=== PATIENT | male | born 1960 | race Caucasian/White ===

== ENCOUNTER 2016-08-25 14:52 | Inpatient (IN) | payer OTHER ==
[2016-08-25] VITALS (8 sets, daily range): BP systolic 113–140; BP diastolic 56–73; PULSE 64–77; RESP 16–20; TEMP 97.4–97.9; O2SAT 93–97
[~2016-08-25] VITALS: Ht 182.9 cm; Wt 97.9 kg
[2016-08-25] MEDS ORDERED: SODIUM CHLORIDE 0.9% FLUSH 5 ML FLUSH IVF PRN (15:15)
[2016-08-25 15:48] LABS: AUTOMATED NEUTROPHIL # 4.4 TH/MM3 (1.8-7.7); BASOPHIL # 0.1 TH/MM3 (0-0.2); BASOPHIL % 1.1 % (0.0-2.0); EOSINOPHIL # 0.2 TH/MM3 (0-0.4); EOSINOPHIL % 2.7 % (0.0-4.0); HEMATOCRIT 39.5 % (39.0-51.0); HEMO FLAGS DIFF FINAL; LYMPH % 32.9 % (9.0-44.0); LYMPHOCYTE # 2.7 TH/MM3 (1.0-4.8); MEAN CORPUSCULAR HGB CONC 34.1 % (32.0-36.0); MONO % 8.6 % (0.0-8.0); NEUT % 54.7 % (16.0-70.0); PLATELET COUNT 295 TH/MM3 (150-450); RED BLOOD COUNT 4.64 MIL/MM3 (4.50-5.90); RED CELL DISTRIBUTION WIDTH 13.3 % (11.6-17.2); WHITE BLOOD COUNT 8.1 TH/MM3 (4.0-11.0)
[2016-08-25 15:56] LABS: APTT (PATIENT) 30.5 SEC (24.3-30.1); INTERNATIONAL NORMALIZED RATIO 0.9 RATIO; PROTHROMBIN TIME - PATIENT 10.1 SEC (9.8-11.6)
[2016-08-25 16:07] LABS: ANION GAP 8 MEQ/L (5-15); BICARBONATE 28.3 MEQ/L (21.0-32.0); BLOOD UREA NITROGEN 21 MG/DL (7-18); CHLORIDE 101 MEQ/L (98-107); GLOMERULAR FILTRATION RATE 80 ML/MIN (>89); MAGNESIUM 1.9 MG/DL (1.5-2.5); POTASSIUM 3.5 MEQ/L (3.5-5.1); SODIUM (NA) 137 MEQ/L (136-145)
--- NOTE | 2016-08-25 16:07 | RADRPT ---
EXAM DATE/TIME: 08/25/2016 15:32 [place] COMPARISON: No previous studies available for comparison. INDICATIONS : Chest pain. MEDICAL HISTORY : Diabetes mellitus type II. SURGICAL HISTORY : Stents placed in 2000 ENCOUNTER: Initial ACUITY: 2 months PAIN SCORE: 5/10 LOCATION: Bilateral chest FINDINGS: A single view of the chest demonstrates the lungs to be symmetrically aerated without evidence of mas s, infiltrate or effusion. The cardiomediastinal contours are unremarkable. Osseous structures are intact. CONCLUSION: 1. No acute cardiopulmonary disease. Esau Morataya MD on August 25, 2016 at 16:02 Board Certified Radiologist. This report was verified electronically.
[2016-08-25 16:10] LABS: CREATINE KINASE 183 U/L (39-308)
[2016-08-25] MEDS ORDERED: ISOS30TA3 PO (16:15)
[2016-08-25] MEDS ORDERED: ATOR40TA16 PO (16:15)
[2016-08-25] MEDS ORDERED: ASPI1TAB69 PO (16:15)
[2016-08-25] MEDS ORDERED: METF500T PO (16:15)
[2016-08-25] MEDS ORDERED: GLYB2.5T3 PO (16:15)
[2016-08-25] MEDS ORDERED: HYDR12.57 PO (16:16)
[2016-08-25] MEDS ORDERED: LISI-515 PO (16:16)
[2016-08-25] MEDS ORDERED: TAMS0.4C4 PO (16:16)
[2016-08-25 16:23] LABS: CKMB 2.8 NG/ML (0.5-3.6)
--- NOTE | 2016-08-25 16:54 | PD ---
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 Patient says that this has been going on for past couple months but progressively getting worse in terms of the frequency and intensity. Patient has history of a stent put in 2001. No history of nausea or vomiting. No history of shortness of breath. The plan is to do a heart catheterization tomorrow. Patient has taken 2 baby aspirins at home this morning. PFS Past Medical History Narrative Medical List of his past medical history as reviewed from the nursing note. Cardiac Catheterization: Yes (stents placed) High Cholesterol: Yes Diabetes: Yes Patient Takes Glucophage: Yes (08/25/2016) Genitourinary: Yes (prostate problems) Hypertension: Yes Social History Alcohol Use: Yes (occasional) Tobacco Use: No Substance Use: Yes (marijuana occasional) Allergies-Medications (Allergen,Severity, Reaction): Coded Allergies: No Known Allergies (Unverified , 08/25/16) Comments No known drug allergies. Reported Meds & Prescriptions Reported Meds & Active Scripts Active Reported Tamsulosin (Tamsulosin HCl) 0.4 Mg Cap 0.4 Mg PO HS Hydrochlorothiazide 12.5 Mg Cap 12.5 Mg PO DAILY Lisinopril 20 Mg Tab 20 Mg PO DAILY Isosorbide Mononitrate ER (Isosorbide Mononitrate) 30 Mg Adonis 30 Mg PO BID Metformin (Metformin HCl) 500 Mg Tab 500 Mg PO BIDPC With meals Glyburide 2.5 Mg Tab 2.5 Mg PO BID Take with meals at the same time each day Atorvastatin (Atorvastatin Calcium) 40 Mg Tab 40 Mg PO HS Aspirin 81 Mg Tabdr 81 Mg PO DAILY Narrative Medication List of his home medications reviewed from the nursing note. Review of Systems Except as stated in HPI: all other systems reviewed are Neg Physical Exam Narrative GENERAL: Awake, alert, anxious but no obvious distress SKIN: Warm and dry. HEAD: Atraumatic. Normocephalic. EYES: Pupils equal and round. No scleral icterus. No injection or drainage. ENT: No nasal bleeding or discharge. Mucous membranes pink and moist. NECK: Trachea midline. No JVD. CARDIOVASCULAR: Regular rate and rhythm. No murmur appreciated. RESPIRATORY: No accessory muscle use. Clear to auscultation. Breath sounds equal bilaterally. GASTROINTESTINAL: Abdomen soft, non-tender, nondistended. Hepatic and splenic margins not palpable. MUSCULOSKELETAL: No obvious deformities. No clubbing. No cyanosis. No edema. NEUROLOGICAL: Awake and alert. No obvious cranial nerve deficits. Motor grossly within normal limits. Normal speech. PSYCHIATRIC: Appropriate mood and affect; insight and judgment normal. Data Data Last Documented VS Vital Signs Date Time Temp Pulse Resp B/P Pulse Ox O2 Delivery O2 Flow Rate FiO2 08/25/16 15:13 18 97 08/25/16 15:12 129/59 140/73 08/25/16 15:12 Room Air 08/25/16 15:00 75 08/25/16 14:55 97.9 Orders Electrocardiogram (08/25/16 15:10) Basic Metabolic Panel (Bmp) (08/25/16 15:10) Ckmb (Isoenzyme) Profile (08/25/16 15:10) Complete Blood Count With Diff (08/25/16 15:10) Magnesium (Mg) (08/25/16 15:10) Prothrombin Time / Inr (Pt) (08/25/16 15:10) Act Partial Throm Time (Ptt) (08/25/16 15:10) Troponin I (08/25/16 15:10) Chest, Single Ap (08/25/16 15:10) Ecg Monitoring (08/25/16 15:10) Bilateral Bp Monitoring (08/25/16 15:10) Iv Access Insert/Monitor (08/25/16 15:10) Oximetry (08/25/16 15:10) Oxygen Administration (08/25/16 15:10) Sodium Chloride 0.9% Flush (Ns Flush) (08/25/16 15:15) CKMB (08/25/16 14:20) CKMB% (08/25/16 14:20) Admit Order (Ed Use Only) (08/25/16 17:07) Consult Cardiology (08/25/16 ) Labs Laboratory Tests Test 08/25/16 14:20 White Blood Count 8.1 TH/MM3 Red Blood Count 4.64 MIL/MM3 Hemoglobin 13.4 GM/DL Hematocrit 39.5 % Mean Corpuscular Volume 85.0 FL Mean Corpuscular Hemoglobin 29.0 PG Mean Corpuscular Hemoglobin 34.1 % Concent Red Cell Distribution Width 13.3 % Platelet Count 295 TH/MM3 Mean Platelet Volume 8.8 FL Neutrophils (%) (Auto) 54.7 % Lymphocytes (%) (Auto) 32.9 % Monocytes (%) (Auto) 8.6 % Eosinophils (%) (Auto) 2.7 % Basophils (%) (Auto) 1.1 % Neutrophils # (Auto) 4.4 TH/MM3 Lymphocytes # (Auto) 2.7 TH/MM3 Monocytes # (Auto) 0.7 TH/MM3 Eosinophils # (Auto) 0.2 TH/MM3 Basophils # (Auto) 0.1 TH/MM3 CBC Comment DIFF FINAL Differential Comment Prothrombin Time 10.1 SEC Prothromb Time International 0.9 RATIO Ratio Activated Partial 30.5 SEC Thromboplast Time Sodium Level 137 MEQ/L Potassium Level 3.5 MEQ/L Chloride Level 101 MEQ/L Carbon Dioxide Level 28.3 MEQ/L Anion Gap 8 MEQ/L Blood Urea Nitrogen 21 MG/DL Creatinine 0.96 MG/DL Estimat Glomerular Filtration 80 ML/MIN Rate Random Glucose 99 MG/DL Calcium Level 9.8 MG/DL Magnesium Level 1.9 MG/DL Total Creatine Kinase 183 U/L Creatine Kinase MB 2.8 NG/ML Troponin I LESS THAN 0.02 NG/ML MDM Medical Decision Making Medical Screen Exam Complete: Yes Emergency Medical Condition: Yes Medical Record Reviewed: Yes Interpretation(s) Twelve-lead EKG was reviewed by me. Normal sinus rhythm, left axis deviation, nonspecific ST-T wave changes. Heart rate of 65 bpm. Differential Diagnosis ACS, unstable angina, non-STEMI Narrative Course 5:02 PM blood test results of back and within normal limit. I spoke with the hospitalist will admit the patient. Patient is aware of the plan of the catheterization tomorrow. Procedures EKG Prior to Arrival: Yes Diagnosis Primary Impression: Unstable angina Admitting Information Admitting Physician Requests: Kaylynn Goins MD Aug 25, 2016 16:54
[2016-08-25] MEDS ORDERED: DEXTROSE 50% IN WATER 50 ML VIAL(D50) IV PUSH PRN (17:45)
[2016-08-25] MEDS ORDERED: NALOXONE HCL 0.4 MG/ML AMP IV PRN (17:45)
[2016-08-25] MEDS ORDERED: ACETAMINOPHEN 325 MG TAB PO PRN ×2 (17:45→18:15)
[2016-08-25] MEDS ORDERED: BISACODYL 10 MG SUPP PR PRN (17:45)
[2016-08-25] MEDS ORDERED: SODIUM CHLORIDE 0.9% FLUSH 5 ML FLUSH FLUSH PRN (17:45)
[2016-08-25] MEDS ORDERED: GLUCAGON 1 MG/ML VIAL OTHER PRN (17:45)
[2016-08-25] MEDS ORDERED: MAGNESIUM HYDROXIDE SUSP 30 ML CUP PO PRN (17:45)
[2016-08-25] MEDS ORDERED: NITROGLYCERIN 0.3 MG SL 100 TABS/BTL SL PRN (17:45)
[2016-08-25] MEDS ORDERED: ONDANSETRON HCL 4 MG/2 ML VIAL IVP PRN (17:45)
--- NOTE | 2016-08-25 18:13 | HHI.HP ---
[facility] Primary [facility] Physician Abdifatah Maurer M.D. 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 Patient reports that he has been having on and off chest pain started last June. 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 However, he noted that in the past few days the chest pain frequency is more and the pain has increased. He even felt that he has a stabbing knife on his back mid scapular area in between shoulders. He also noted that when he woke up this morning his left jaw was hurting with some numbness. As per patient report also, he took twice the amount of all his medications today, thinking it was Monday, making him take all a.m. meds twice. On exam, patient states that he has no chest pain right now. Denies any other pain and discomfort. Denies SOB/ dyspnea. Denies palpitations, headaches, dizziness. Denies fevers, chills, n/v/d. Denies dysuria, abdominal cramping, abdominal pain, hematuria. Review of Systems Other Negative except for what is noted on history of present illness. Past Family Social History Past Medical History HTN DM 2 HLD BPH Past Surgical History Cardiac Stents in 2001 Reported Medications Tamsulosin (Tamsulosin HCl) 0.4 Mg Cap 0.4 Mg PO HS Hydrochlorothiazide 12.5 Mg Cap 12.5 Mg PO DAILY Lisinopril 20 Mg Tab 20 Mg PO DAILY Isosorbide Mononitrate ER (Isosorbide Mononitrate) 30 Mg Adonis 30 Mg PO BID Metformin (Metformin HCl) 500 Mg Tab 500 Mg PO BIDPC With meals Glyburide 2.5 Mg Tab 2.5 Mg PO BID Take with meals at the same time each day Atorvastatin (Atorvastatin Calcium) 40 Mg Tab 40 Mg PO HS Aspirin 81 Mg Tabdr 81 Mg PO DAILY Allergies: Coded Allergies: No Known Allergies (Unverified , 08/25/16) Active Ordered Medications Current Medications Medications (Trade) Dose Ordered Sig/Sakina Route Start Time Stop Time Status Last Admin (NS Flush) 2 ml UNSCH PRN IVF 08/25/16 15:15 (NS Flush) 2 ml UNSCH PRN FLUSH 08/25/16 17:45 UNV (NS Flush) 2 ml BID FLUSH 08/25/16 21:00 UNV (Tylenol) 650 mg Q4H PRN PO 08/25/16 17:45 UNV (Zofran Inj) 4 mg Q6H PRN IVP 08/25/16 17:45 UNV (Dulcolax Supp) 10 mg DAILY PRN TX 08/25/16 17:45 UNV (Milk Of Magnesia Liq) 30 ml Q12H PRN PO 08/25/16 17:45 UNV (Narcan Inj) 0.4 mg UNSCH PRN IV 08/25/16 17:45 UNV (Nitrostat Sl) 0.3 mg Q5M PRN SL 08/25/16 17:45 UNV (D50w (Vial) Inj) 25 ml UNSCH PRN IV PUSH 08/25/16 17:45 UNV (Glucagon Inj) 1 mg UNSCH PRN OTHER 08/25/16 17:45 UNV Family History Father high blood pressure, heart disease, AICD placement Mother heart problem, heart attack Siblings also has heart problems, high blood pressure Social History Occasional alcohol use Former smoker, quit August 2000 Denies substance abuse - quit in 1984 Physical Exam Vital Signs Vital Signs Date Time Temp Pulse Resp B/P Pulse Ox O2 Delivery O2 Flow Rate FiO2 08/25/16 15:13 18 97 08/25/16 15:12 129/59 140/73 08/25/16 15:12 95 Room Air 08/25/16 15:00 113 08/25/16 14:55 97.9 71 16 129/59 95 Physical Exam GENERAL: This is a well-nourished, well-developed patient, in no apparent distress. SKIN: No rashes, ecchymoses or lesions. Cool and dry. HEAD: Atraumatic. Normocephalic. No temporal or scalp tenderness. EYES: Pupils equal round and reactive. Extraocular motions intact. No scleral icterus. No injection or drainage. ENT: Nose without bleeding. Throat without erythema. Uvula midline. Airway patent. NECK: Trachea midline. No JVD or lymphadenopathy. Supple, nontender, no meningeal signs. CARDIOVASCULAR: Regular rate and rhythm without murmurs, gallops, or rubs. RESPIRATORY: Clear to auscultation. Breath sounds equal bilaterally. No wheezes , rales, or rhonchi. GASTROINTESTINAL: Abdomen soft, non-tender, nondistended. No hepato-splenomegaly , or palpable masses. No guarding. MUSCULOSKELETAL: Extremities without clubbing, cyanosis, or edema. No joint tenderness, effusion, or edema noted. No calf tenderness. Negative Homans sign bilaterally. NEUROLOGICAL: Awake and alert. Cranial nerves II through XII intact. Motor and sensory grossly within normal limits. Five out of 5 muscle strength in all muscle groups. Normal speech. Laboratory Laboratory Tests Test 08/25/16 14:20 White Blood Count 8.1 Red Blood Count 4.64 Hemoglobin 13.4 Hematocrit 39.5 Mean Corpuscular Volume 85.0 Mean Corpuscular Hemoglobin 29.0 Mean Corpuscular Hemoglobin 34.1 Concent Red Cell Distribution Width 13.3 Platelet Count 295 Mean Platelet Volume 8.8 Neutrophils (%) (Auto) 54.7 Lymphocytes (%) (Auto) 32.9 Monocytes (%) (Auto) 8.6 Eosinophils (%) (Auto) 2.7 Basophils (%) (Auto) 1.1 Neutrophils # (Auto) 4.4 Lymphocytes # (Auto) 2.7 Monocytes # (Auto) 0.7 Eosinophils # (Auto) 0.2 Basophils # (Auto) 0.1 CBC Comment DIFF FINAL Differential Comment Prothrombin Time 10.1 Prothromb Time International 0.9 Ratio Activated Partial 30.5 Thromboplast Time Sodium Level 137 Potassium Level 3.5 Chloride Level 101 Carbon Dioxide Level 28.3 Anion Gap 8 Blood Urea Nitrogen 21 Creatinine 0.96 Estimat Glomerular Filtration 80 Rate Random Glucose 99 Calcium Level 9.8 Magnesium Level 1.9 Total Creatine Kinase 183 Creatine Kinase MB 2.8 Troponin I LESS THAN 0.02 Result Diagram: 08/25/16 1420 08/25/16 1420 Assessment and Plan Problem List: (1) Unstable angina ICD Code: I20.0 Status: Acute (2) BPH (benign prostatic hyperplasia) ICD Code: N40.0 Status: Chronic (3) HLD (hyperlipidemia) ICD Code: E78.5 Status: Chronic (4) DM type 2 (diabetes mellitus, type 2) ICD Code: E11.9 Status: Chronic (5) HTN (hypertension) ICD Code: I10 Status: Chronic Assessment and Plan Patient is a pleasant 56 year old white male with primary medical history of hypertension, DM 2, BPH, hyperlipidemia, previous cardiac stents placement 2001 who 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 Singh) with symptoms of typical chest pain on exertion. Chest pain, angina unstable - EKG interpreted by me sinus rhythm with nonspecific ST to T wave elevation. We'll repeat EKG tomorrow - Dr. Singh consulted. - Nothing by mouth after midnight, possible cardiac catheter tomorrow - Nitroglycerin sublingual when necessary - First troponin 0.02, will trend. Check ECHO. -Monitor labs in a.m. HTN - monitor BP trend - Patient took twice the amount of medication this a.m. - lisinopril 20mg, ASA 81 mg, hydrochlorothiazide 12.5 mg DM 2 - we'll hold off on metformin for now. - Monitor Accu-Cheks, started on insulin sliding scale -Monitor for hypoglycemia BPH - home medication Flomax. We'll start after cardiac catheter DVT prop SCDs Written by Kiara Everett, acting as scribe for Dr. De Oliveira on 08/25/16 at 17: 31. The documentation accurately reflects the work performed [id number] by me on at 17:31. Code Status Full code Discussed Condition With Patient, RN, computer systems administrator, ED attending Physician Certification 2 Midnight Certification Type: Admission for Inpatient Services Order for Inpatient Services The services are ordered in accordance with Medicare regulations or non- Medicare payer requirements, as applicable. In the case of services not specified as inpatient-only, they are appropriately provided as inpatient services in accordance with the 2-midnight benchmark. Estimated LOS (days): 2 days is the estimated time the patient will need to remain in the hospital, assuming treatment plan goals are met and no additional complications. Post-Hospital Plan: Not yet determined Problem Qualifiers (1) DM type 2 (diabetes mellitus, type 2): Kiara Smallwood Aug 25, 2016 18:13 Johnny De Oliveira MD Aug 25, 2016 18:22
[2016-08-25] MEDS ORDERED: TEMAZEPAM 15 MG CAP PO PRN (18:15)
[2016-08-25] MEDS ORDERED: HEPARIN-D5W INJ 250 ML IV SCH (18:30)
--- NOTE | 2016-08-25 20:18 | MB ---
cc: JEAN-CLAUDE RODRIGUES DO DATE OF CONSULTATION 08/25/16 REASON FOR CONSULTATION Unstable angina. HISTORY OF PRESENT ILLNESS Gene Diaz is a pleasant 56-year-old male who presents to [place] emergency room on August 25, 2016 with a complaint of typical chest pain on exertion. He was originally over seeing Dr. Singh in the office and has been noting chest pain for the past couple of months since June. The pain has gotten consistently worse to the point where he is using Imdur twice a day and still having episodes. He states that he does get chest pain as well as a sharp stab between his shoulder blades, both go away with Imdur. He has also been noticing over the past few days left jaw pain. Because of these, Dr. Singh asked that he come over to the emergency room due to unstable angina for consideration of cardiac catheterization. PAST MEDICAL HISTORY 1. Coronary artery disease. 2. Hyperlipidemia 3. Diabetes mellitus. 4. Hypertension. PAST SURGICAL HISTORY Previous cardiac catheterization with stent placement to his RCA (2001 at [facility]). ALLERGIES NO KNOWN DRUG ALLERGIES. MEDICATIONS 1. Aspirin 81 mg daily 2. Lipitor 40 mg every night 3. Glyburide 2.5 mg b.i.d. 4. Metformin 500 mg b.i.d. 5. Imdur 30 mg b.i.d. 6. Lisinopril 20 mg daily 7. Hydrochlorothiazide 12.5 mg daily 8. Flomax 0.4 mg every night. FAMILY HISTORY Mother had high blood pressure, heart disease and ICD placement. He denies premature coronary artery disease or sudden cardiac within the family. SOCIAL HISTORY He occasionally drinks alcohol. He was a former smoker but quit August 2000. Denies substance abuse, quitting in 1984. He works in [employer]. REVIEW OF SYSTEMS 14 systems were reviewed including osteopathic. Pertinent positives and negatives as above, otherwise, negative. PHYSICAL EXAMINATION VITAL SIGNS: Temperature 97.9, heart rate 64, blood pressure 129/59, respirations 18, pulse ox 97% on room air. GENERAL: The patient appears well in no acute distress, alert, awake and oriented x3. HEENT: Extraocular muscles intact. Mucous membranes moist. NECK: Supple. No JVD at 45 degrees. No carotid bruits heard bilaterally. Carotid upstroke is brisk in nature. HEART: Regular rate and rhythm. Positive first and second heart sounds with no murmurs, gallops or rubs. PMI is nondisplaced. LUNGS: Clear to auscultation bilaterally. No wheezes, rales or rhonchi. ABDOMEN: Soft, nontender, nondistended, no organomegaly noted. EXTREMITIES: No clubbing, cyanosis or edema. Femoral and distal pulses are intact bilaterally. NEUROLOGIC: No focal deficits. SKIN: Warm, dry and intact. OSTEOPATHIC: No kyphoscoliosis, lordosis or paraspinal tender points. LABORATORY FINDINGS Hemoglobin 13.4, hematocrit 39.5, platelets 295. Potassium 3.5, BUN 21, creatinine 0.96, troponin less than 0.02. CARDIOLOGY STUDIES Electrocardiogram (August 25, 2016 at 1407) normal sinus rhythm, left axis deviation, LVH. IMPRESSION 1. Unstable angina with increased use of nitro still having episodes of chest pain daily. 2. Coronary artery disease with previous stent placed to his RCA (2001 at [facility]) 3. Hypertension 4. Diabetes mellitus type 2. 5. Hyperlipidemia 6. Benign prostatic hypertrophy RECOMMENDATIONS 1. Gene Diaz presents with increasing episodes of chest pain, most likely from unstable angina. He will undergo coronary visualization in the morning. If overnight he has increasing chest pain, hemodynamic compromise or electrical instability, he may need to go to the lab earlier. 2. We will plan on doing the procedure from the right radial access site. 3. We will check a 2-D echo to look at his overall left ventricular function, cardiac structure and possible valvopathies. 4. Further recommendations will be made after coronary visualization. Thank you for allowing me to see Gene Diaz. If there are any questions, please do not hesitate to call. Jean-Claude Rodrigues DO ANJALIP/ /6:19 PM /8:05 PM
[2016-08-25 20:29] LABS: APTT (PATIENT) 30.4 SEC (24.3-30.1)
[2016-08-25] MEDS: INSULIN ASPART SUPPLEMENTAL SCALE SQ SCH (21:00)
[2016-08-25] MEDS ORDERED: SODIUM CHLORIDE 0.9% FLUSH 5 ML FLUSH FLUSH SCH (21:00)
[2016-08-25 21:26] LABS: HEMATOCRIT 39.6 % (39.0-51.0); MEAN CELL VOLUME 84.1 FL (80.0-100.0); MEAN CORPUSCULAR HEMOGLOBIN 28.6 PG (27.0-34.0); PLATELET COUNT 282 TH/MM3 (150-450); RED BLOOD COUNT 4.71 MIL/MM3 (4.50-5.90); REVIEW FLAG FINAL; WHITE BLOOD COUNT 7.8 TH/MM3 (4.0-11.0)
[2016-08-25] MEDS: ATORVASTATIN 40 MG TAB PO SCH (21:35)
[2016-08-25] MEDS: ISOSORBIDE MONONITRATE 30 MG TAB PO SCH (21:35)
[2016-08-26] VITALS (12 sets, daily range): BP systolic 124–133; BP diastolic 60–69; PULSE 60–86; RESP 18–22; TEMP 97.5–98.5; O2SAT 95–98
[2016-08-26] MEDS ORDERED: HEPARIN SODIUM - IV 10,000 UNITS/10 ML VIAL IV PRN ×2 (00:30)
[2016-08-26 02:15] LABS: APTT (PATIENT) 31.5 SEC (24.3-30.1)
[2016-08-26] MEDS: INSULIN ASPART SUPPLEMENTAL SCALE SQ SCH ×3 (06:48→21:00)
[2016-08-26 07:03] LABS: AUTOMATED NEUTROPHIL # 2.6 TH/MM3 (1.8-7.7); BASOPHIL # 0.1 TH/MM3 (0-0.2); EOSINOPHIL # 0.4 TH/MM3 (0-0.4); EOSINOPHIL % 6.2 % (0.0-4.0); HEMATOCRIT 38.1 % (39.0-51.0); HEMO FLAGS DIFF FINAL; LYMPH % 38.5 % (9.0-44.0); LYMPHOCYTE # 2.2 TH/MM3 (1.0-4.8); MEAN CELL VOLUME 84.4 FL (80.0-100.0); MEAN CORPUSCULAR HEMOGLOBIN 29.2 PG (27.0-34.0); MEAN CORPUSCULAR HGB CONC 34.6 % (32.0-36.0); MONO % 8.9 % (0.0-8.0); NEUT % 45.4 % (16.0-70.0); PLATELET COUNT 273 TH/MM3 (150-450); RED BLOOD COUNT 4.51 MIL/MM3 (4.50-5.90); RED CELL DISTRIBUTION WIDTH 13.2 % (11.6-17.2); WHITE BLOOD COUNT 5.8 TH/MM3 (4.0-11.0)
[2016-08-26 07:10] LABS: ALT (GPT) 24 U/L (12-78); ANION GAP 7 MEQ/L (5-15); AST (GOT) 15 U/L (15-37); BICARBONATE 28.6 MEQ/L (21.0-32.0); BLOOD UREA NITROGEN 18 MG/DL (7-18); CHLORIDE 102 MEQ/L (98-107); POTASSIUM 3.6 MEQ/L (3.5-5.1); SODIUM (NA) 138 MEQ/L (136-145)
[2016-08-26 07:15] LABS: ALKALINE PHOSPHATASE 94 U/L (45-117); GLOMERULAR FILTRATION RATE 67 ML/MIN (>89); TOTAL BILIRUBIN ADULT 0.4 MG/DL (0.2-1.0)
[2016-08-26] MEDS ORDERED: HEPARIN-NS/PF INJ 500 ML ONE (09:10)
[2016-08-26] MEDS ORDERED: MIDAZOLAM HCL 2 MG/2 ML VIAL ONE (09:11)
[2016-08-26] MEDS ORDERED: HEPARIN SODIUM - IV 10,000 UNITS/10 ML VIAL ONE (09:21)
[2016-08-26] MEDS ORDERED: VERAPAMIL HCL 5 MG/2 ML VIAL ONE (09:21)
[2016-08-26] MEDS ORDERED: NITROGLYCERIN INJ 5 ML ONE (09:22)
[2016-08-26] MEDS ORDERED: MISC INFORMATION XX ONE (10:15)
[2016-08-26] MEDS ORDERED: SODIUM CHLORIDE 0.9% FLUSH 5 ML FLUSH IVF PRN (10:15)
[2016-08-26] MEDS ORDERED: IOHEXOL 350 MG/ML 100 ML BTL (for Cath Lab) OTHER ONE (10:25)
--- NOTE | 2016-08-26 10:39 | HHI.PR ---
Subjective Remarks Follow-up unstable angina 08/26/16-patient seen and examined early this morning, still free of chest pain and denies any shortness of breath. Currently nothing by mouth and plan for left heart catheterization Objective Vitals Vital Signs Date Time Temp Pulse Resp B/P Pulse Ox O2 Delivery O2 Flow Rate FiO2 08/26/16 08:02 97.5 86 22 133/69 95 08/26/16 04:01 Room Air 08/26/16 04:00 97.6 64 20 124/62 98 08/26/16 01:05 61 08/25/16 23:53 97.4 64 20 121/59 96 08/25/16 23:45 66 18 113/56 94 08/25/16 20:09 77 20 115/58 97 Room Air 08/25/16 20:08 97 Room Air 08/25/16 20:03 66 20 115/58 93 Room Air 08/25/16 18:19 68 18 113/59 95 Room Air 08/25/16 15:13 18 97 08/25/16 15:12 129/59 140/73 08/25/16 15:12 95 Room Air 08/25/16 15:00 75 08/25/16 14:55 97.9 71 16 129/59 95 I/O 08/25/16 08/25/16 08/25/16 08/26/16 08/26/16 08/26/16 07:00 15:00 23:00 07:00 15:00 23:00 Intake Total 0 ml Balance 0 ml Intake Oral 0 ml # Voids 2 # Bowel Movements 0 Result Diagram: 08/26/16 0506 08/26/16 0506 Imaging Last Impressions Chest X-Ray 08/25/16 1510 Signed Impressions: Service Date/Time: August 15:32 - CONCLUSION: 1. No acute cardiopulmonary disease. Esau Morataya MD Objective Remarks GENERAL: NAD SKIN: Warm and dry. HEAD: Normocephalic. EYES: No scleral icterus. No injection or drainage. NECK: Supple, trachea midline. No JVD or lymphadenopathy. CARDIOVASCULAR: Regular rate and rhythm without murmurs, gallops, or rubs. RESPIRATORY: Breath sounds equal bilaterally. No accessory muscle use. GASTROINTESTINAL: Abdomen soft, non-tender, nondistended. MUSCULOSKELETAL: No cyanosis, or edema. BACK: Nontender without obvious deformity. No CVA tenderness. A/P Problem List: (1) Unstable angina ICD Code: I20.0 Status: Acute (2) BPH (benign prostatic hyperplasia) ICD Code: N40.0 Status: Chronic (3) HLD (hyperlipidemia) ICD Code: E78.5 Status: Chronic (4) DM type 2 (diabetes mellitus, type 2) ICD Code: E11.9 Status: Chronic (5) HTN (hypertension) ICD Code: I10 Status: Chronic Assessment and Plan 56-year-old male with Chest pain, angina unstable - EKG interpreted by me sinus rhythm with nonspecific ST to T wave elevation. We'll repeat EKG tomorrow - Cardiology consulted for plan for left heart catheterization today . - Nothing by mouth - Nitroglycerin sublingual when necessary - ACS ruled out per protocol with serial cardiac enzyme and EKGs 2D ECHO pending. HTN - on lisinopril 20mg, ASA 81 mg, hydrochlorothiazide 12.5 mg DM 2 - continue to hold off on metformin for now. - Monitor Accu-Cheks, started on insulin sliding scale BPH - restart home medication Flomax after cardiac catheter DVT prop SCDs Problem Qualifiers (1) DM type 2 (diabetes mellitus, type 2): Johnny De Oliveira MD Aug 26, 2016 10:39
--- NOTE | 2016-08-26 11:04 | MA ---
cc: JEAN-CLAUDE RODRIGUES,ISAURA Ramirez MD DATE 08/26/2016 PROCEDURE PERFORMED Left heart catheterization, coronary angiography. PREPROCEDURE DIAGNOSIS Unstable angina POSTPROCEDURE DIAGNOSIS Multivessel coronary artery disease. MEDICATIONS USED Versed 1 mg, Fentanyl 50 mcg, Verapamil 2.5 mg, Nitro 200 mcg, heparin 3800 units. CONTRAST 70 cc FLUOROSCOPY 4.9 minutes ESTIMATED BLOOD LOSS 10 cc PROCEDURAL SUMMARY Gene Diaz is a pleasant 56-year-old male who was originally seen by my partner, Dr. Singh, in the office and was noted to have increasing use of nitroglycerin with chest pain daily concerning for unstable angina. He was sent to the emergency room last night and in seeing him, agreed that he should undergo coronary visualization. The risks, benefits and alternatives were explained to him and he signed consent as such. He was brought to the lab and prepped in the usual sterile fashion. The right radial artery was accessed using a modified Seldinger technique and placement of a slender 5/6 Terumo sheath. The sheath was easily aspirated and flushed. A JR-4 was then advanced to the ascending aortic root over a J-wire. This was used to cross the aortic valve and LV pressures were measured with an LVEDP of 7. JR-4 was then pulled back across the aortic valve showing no gradient of aortic stenosis. The JR-4 was then used for selective angiography of the right coronary artery showing a few tandem lesions with the first in the mid section of 90% and the second in the distal RCA which appears to be subtotal in nature. There is competitive flow in a distal PDA and posterolateral branch. The JR-4 was then removed over a J-wire and exchanged for a JL-3.5. This was used for selective angiography of the left coronary system. The left main appears to have 10% stenosis in a short nature. The left main gives off an LAD and left circumflex artery. LAD has 20% stenosis diffusely throughout with no significant obstructive disease. The first diagonal artery appears to have 50% ostial stenosis and the second diagonal appears to have ostial stenosis of 90%. The left circumflex appears to have 60% stenosis distally. It gives off four major obtuse marginals with the second and third coming off a similar area with 90% ostial stenosis each. The left coronary system, specifically the LAD does supply [id number] collaterals to the distal PDA and posterolateral branch. The JL-3.5 was then removed over a J-wire. Radial sheath was removed after placing a radial band with 9 cc of air. The patient left the cardiovascular decided the patient left the catheterization lab cardiovascularly stable. IMPRESSION 1. Unstable angina 2. Multivessel coronary artery disease RECOMMENDATIONS 1. Gene Diaz appears to have multiple at vessel coronary artery disease and CT surgery should at least be considered as his ostial diagonal would be a provisional stent across his LAD as well as his two obtuse marginals would be off the same branch and would end up being a provisional stent across his circumflex and second obtuse marginal. 2. Will have CT surgery to see him today. 3. He should most likely be placed back on a heparin drip until anticipated surgery. 4. If turned down for surgery, consideration will be made for possible stenting of his RCA and then decisions of medical management versus intervention on his other lesions. Thank you for allowing me to see Gene Diaz. If there are any questions, please do not hesitate to call. Jean-Claude Rodrigues DO VGP/DJL /10:08 AM /10:48 AM
[2016-08-26] MEDS ORDERED: ceFAZolin 2 GM PREMIX 50 ML IV SCH (12:00)
[2016-08-26] MEDS ORDERED: CEFAZOLIN INJ 500 MG in SODIUM CHLORIDE 0.9% IRR BTL 500 ML IRRIGATION SCH (12:00)
[2016-08-26] MEDS ORDERED: INSULIN REGULAR (IV INFUSION) 100 UNITS in SODIUM CHLORIDE 0.9% INJ 100 ML IV SCH (12:00)
[2016-08-26] MEDS ORDERED: METOPROLOL TARTRATE 25 MG TAB PO SCH (12:00)
[2016-08-26] MEDS ORDERED: SODIUM CHLORIDE 0.9% FLUSH 5 ML FLUSH IV FLUSH PRN (12:00)
[2016-08-26] MEDS ORDERED: PAPAVERINE INJ 60 MG, NITROGLYCERIN INJ 100 MCG, DILTIAZEM INJ 100 MG in SODIUM CHLORID... IRRIGATION SCH (12:00)
[2016-08-26] MEDS ORDERED: CHLORHEXIDINE GLUCONATE 4% SOLN 120 ML BTL TOPICAL SCH (12:00)
[2016-08-26] MEDS ORDERED: PILL SPLITTER OTHER PRN (12:30)
--- NOTE | 2016-08-26 12:37 | MB ---
cc: RAOUL STANTON MD DATE OF CONSULTATION: 08/26/2016 DATE OF : 1960 HISTORY OF PRESENT ILLNESS A 56-year-old male patient of Dr. Abdifatah Maurer and Dr. Singh, who apparently has a history of coronary artery disease with prior stent to the RCA in 2001. He has been having chest pain off and on for about three months with or without exertion. His anginal pain is heaviness in his chest radiating to both arms. He also has periods of chronic back pain. He saw Dr. Singh in the office complaining of his chest discomfort and also been taking additional Imdur for the pain. He recommended the patient come to the emergency room due to the unstable angina and considered for heart catheterization which was done today by Dr. Leyva. The heart cath showed 10% left main, proximal LAD 20%, mid distal LAD 20%, diagonal had up to 80% ostial lesion, circumflex had 50%, OM 99% ostial lesion and the RCA had 99% lesion. An echo has been ordered to evaluate the EF. The patient is currently pain free. He is, however, still on a heparin drip and nitrates. His cardiac risk factors include age, diabetes mellitus, hypertension, prior coronary artery disease and family history. PAST MEDICAL HISTORY 1. Coronary artery disease. 2. Hyperlipidemia. 3. Diabetes mellitus. 4. Hypertension. 5. Benign prostatic hypertrophy. PAST SURGICAL HISTORY Stent to the RCA in 2001. ALLERGIES He has no known allergies. MEDICATIONS Home meds include: 1. Aspirin 81 mg daily. 2. Lipitor 40 mg p.o. daily. 3. Glyburide 2.5 mg p.o. b.i.d. 4. Metformin 500 mg b.i.d. 5. Imdur 30 mg p.o. b.i.d. 6. Lisinopril 20 mg p.o. daily. 7. HCTZ 12.5 mg daily. 8. Flomax 0.4 mg daily. FAMILY HISTORY Mother at age 73 from cancer and heart disease, also had hypertension. Father also with heart disease and cancer and also had an ICD. SOCIAL HISTORY The patient is , has one child. Smoked for 30 years two packs per day, quit in 2000. Occasional alcohol. No illicit drugs. REVIEW OF SYSTEMS GENERAL: No night sweats, fever, heat or cold intolerance. SKIN: No psoriasis, itching or hives. HEENT: No blurred vision or hearing loss. RESPIRATORY: Some shortness of breath when he has his anginal pain. CARDIOVASCULAR: As above in the HPI. GASTROINTESTINAL: No diarrhea or vomiting. GENITOURINARY: No burning, frequency, urgency. PAPER DELIVERER: No history of TIA, CVA, seizure disorder. ENDOCRINE: Positive for diabetes. PHYSICAL EXAMINATION VITAL SIGNS: Blood pressure 130/70, heart rate 64-80, respiratory rate 18, afebrile. O2 sat 95 on room air. GENERAL: The patient is awake, alert, in no acute distress. HEENT: Head is normocephalic, atraumatic. Pupils equal and reactive. Oral mucosa pink and moist. NECK: Supple. No JVD. HEART: Heart sounds S1, S2, regular rate and rhythm. No rubs, murmurs or gallops. LUNGS: Clear to auscultation. No wheezes, rales or rhonchi. ABDOMEN: Soft, nontender. No masses or organomegaly. EXTREMITIES: No cyanosis, clubbing or edema. LABORATORY DATA Hemoglobin 13, hematocrit 38, white cell count 5.8, platelet count 273. Sodium 138, potassium 3.6, BUN 18, creatinine 1.12. INR 0.9. IMPRESSION AND PLAN This is a 56-year-old male with a history of prior stent to the RCA with disease to the diagonal, the circumflex, the OM, and again the RCA with recent anginal pain. Cardiac films have been evaluated by Dr. Raoul Stanton. Procedures, alternatives and risks will be discussed with the patient, and plan for possible surgery on Monday. He is to continue on the heparin drip. Dictated by: YEIMY Leon Raoul RAYMUNDO/GLEN /11:45 AM /3:51 PM
[2016-08-26] MEDS: ISOSORBIDE MONONITRATE 30 MG TAB PO SCH ×2 (12:50→21:23)
--- NOTE | 2016-08-26 15:43 | RADRPT ---
EXAM DATE/TIME: 08/26/2016 14:14 [facility] COMPARISON: No previous studies available for comparison. INDICATIONS : Preop cardiac surgery. MEDICAL HISTORY : Hypercholesterolemia. Hypertension. Hernia, hiatal. Head trauma. Dyspnea. GERD. Prostate problems. Diabetes. Substance use. SURGICAL HISTORY : Coronary artery stent. Cardiac cath. ENCOUNTER: Initial ACUITY: 1 day PAIN SCORE: 0/10 LOCATION: Bilateral neck PEAK SYSTOLIC VELOCITIES (cm/sec): ICA/CCA RATIO: Right: 0.8 Left: 0.7 ICA: Right: 81 Left: 93 CCA: Right: 101 Left: 124 ECA: Right: 121 Left: 109 VERTEBRAL: Right: 68 antegrade Left: 77 antegrade Elevated flow velocities and ICA/CCA ratios have been found to correlate with increased degrees of vessel stenosis, calculated as percentage of diameter relative to a normal segment of distal ICA/CCA FINDINGS: RIGHT CAROTID: There is no evidence for a hemodynamically significant carotid stenosis. Minimal int imal hyperplasia is present with scattered calcific plaque. LEFT CAROTID: There is no evidence for a hemodynamically significant carotid stenosis. Minimal inti mal hyperplasia is present with scattered calcific plaque. VERTEBRAL ARTERIES: Flow is antegrade in both vertebral arteries. MISCELLANEOUS: There are no ancillary masses or adenopathy. CONCLUSION: Negative examination for a hemodynamically significant carotid stenosis. Aydin Ken MD FACR Board Certified Radiologist. This report was verified electronically.
--- NOTE | 2016-08-26 15:44 | RADRPT ---
EXAM DATE/TIME: 08/26/2016 14:26 [facility] COMPARISON: No previous studies available for comparison. INDICATIONS : Preop cardiac surgery. MEDICAL HISTORY : Hypercholesterolemia. Hypertension. Hernia, hiatal. Head trauma. Dyspnea. GERD. Prostate problems. Di abetes. Substance use. SURGICAL HISTORY : Coronary artery stent. Cardiac cath. ENCOUNTER: Initial ACUITY: 1 day PAIN SCORE: 0/10 LOCATION: Bilateral leg. TECHNIQUE: Venous ultrasound of the left and right leg was performed from the inguinal ligament to the proximal calf. Real-time, color Doppler and spectral tracing, compression and augmentation techniques were us ed. FINDINGS: RIGHT LEG: There is normal compressibility of the deep venous system from the inguinal region to the proximal ca lf. No echogenic clot is seen in the lumen of the common femoral, femoral, popliteal, and posterior tibial veins. There is a normal response of the venous system to proximal and distal augmentation an d respiration. LEFT LEG: There is normal compressibility of the deep venous system from the inguinal region to the proximal ca lf. No echogenic clot is seen in the lumen of the common femoral, femoral, popliteal, and posterior tibial veins. There is a normal response of the venous system to proximal and distal augmentation an d respiration. CONCLUSION: Negative for deep venous thrombosis.. Aydin Ken MD FACR on August 26, 2016 at 15:42 Board Certified Radiologist. This report was verified electronically.
--- NOTE | 2016-08-26 15:55 | RADRPT ---
EXAM DATE/TIME: 08/26/2016 14:36 [facility] COMPARISON: No previous studies available for comparison. INDICATIONS : Preop cardiac surgery. MEDICAL HISTORY : Hypercholesterolemia. Hypertension. Hernia, hiatal. Head trauma. Dyspnea. GERD. Prostate problems. Di abetes. Substance use. SURGICAL HISTORY : Coronary artery stent. Cardiac cath. ENCOUNTER: Initial ACUITY: 1 day PAIN SCORE: 0/10 LOCATION: Bilateral leg. GREATER SAPHENOUS VEIN THIGH: PROXIMAL: Right 9 mm Left 8 mm MID: Right 3 mm Left 3 mm DISTAL: Right 3 mm Left 3 mm CALF: PROXIMAL: Right 3 mm Left 2 mm MID: Right 2 mm Left 2 mm DISTAL: Right 2 mm Left 2 mm FINDINGS: The venous system of the lower extremities are patent by color Doppler imaging. Measurements of the leg veins (in mm) are listed above. CONCLUSION: 1. Venous mapping as above Esau Morataya MD on August 26, 2016 at 15:53 Board Certified Radiologist. This report was verified electronically.
[2016-08-26 18:03] LABS: APTT (PATIENT) 29.2 SEC (24.3-30.1); INTERNATIONAL NORMALIZED RATIO 0.9 RATIO
[2016-08-26] MEDS: HEPARIN-D5W INJ 250 ML IV SCH (18:24)
[2016-08-26] MEDS ORDERED: SODIUM CHLORIDE 0.9% FLUSH 5 ML FLUSH IVF SCH (21:00)
[2016-08-26] MEDS: SODIUM CHLORIDE 0.9% FLUSH 5 ML FLUSH IV FLUSH SCH (21:00)
[2016-08-26] MEDS: ATORVASTATIN 40 MG TAB PO SCH (21:23)
[2016-08-26] MEDS: METOPROLOL TARTRATE 25 MG TAB PO SCH (21:23)
--- NOTE | 2016-08-26 22:56 | EKG ---
Date Performed: 08/25/2016 Time Performed: 14:04:47 PTAGE: 56 years EKG: Sinus rhythm MARKED LEFT AXIS DEVIATION MODERATE VOLTAGE CRITERIA FOR LVH, CONSIDER NORMAL VARIANT ABNORMAL ECG I NTERPRETATION BASED ON A DEFAULT AGE OF 40 YEARS NO PREVIOUS TRACING DOCTOR: Geronimo Garcia Interpretating Date/Time 08/26/2016 22:49:32
[2016-08-27] VITALS (21 sets, daily range): BP systolic 112–156; BP diastolic 60–81; PULSE 54–82; RESP 18; TEMP 97.6–98.7; O2SAT 94–98
[2016-08-27 00:06] LABS: BLOOD, URINE NEG (NEG); COMMENT (UR) CULT NOT INDICATED; CULTURE IF INDICATED CULT NOT INDICATED; GLUCOSE,URINE NEG (NEG); KETONE, URINE NEG (NEG); MUCUS URINE FEW /lpf (OCC); NITRITE,URINE NEG (NEG); PH, URINE 6.5 (5.0-8.5); SQUAMOUS EPITHELIAL CELL URINE 2 /hpf (0-5); URINE COLOR YELLOW (YELLW/STRAW)
[2016-08-27 00:10] LABS: APTT (PATIENT) 28.5 SEC (24.3-30.1)
[2016-08-27 04:56] LABS: AUTOMATED NEUTROPHIL # 3.5 TH/MM3 (1.8-7.7); BASOPHIL % 0.3 % (0.0-2.0); EOSINOPHIL # 0.4 TH/MM3 (0-0.4); EOSINOPHIL % 5.6 % (0.0-4.0); HEMATOCRIT 38.3 % (39.0-51.0); HEMO FLAGS DIFF FINAL; LYMPHOCYTE # 2.3 TH/MM3 (1.0-4.8); MEAN CELL VOLUME 84.4 FL (80.0-100.0); MEAN CORPUSCULAR HEMOGLOBIN 29.3 PG (27.0-34.0); MEAN CORPUSCULAR HGB CONC 34.8 % (32.0-36.0); MONO % 8.3 % (0.0-8.0); NEUT % 51.8 % (16.0-70.0); PLATELET COUNT 256 TH/MM3 (150-450); RED BLOOD COUNT 4.53 MIL/MM3 (4.50-5.90); RED CELL DISTRIBUTION WIDTH 13.5 % (11.6-17.2); WHITE BLOOD COUNT 6.7 TH/MM3 (4.0-11.0)
[2016-08-27 05:10] LABS: APTT (PATIENT) 33.9 SEC (24.3-30.1)
[2016-08-27 05:25] LABS: BICARBONATE 29.5 MEQ/L (21.0-32.0); POTASSIUM 3.6 MEQ/L (3.5-5.1)
[2016-08-27] MEDS: INSULIN ASPART SUPPLEMENTAL SCALE SQ SCH ×4 (06:44→20:10)
[2016-08-27] MEDS: ISOSORBIDE MONONITRATE 30 MG TAB PO SCH ×2 (08:04→20:03)
[2016-08-27] MEDS: ASPIRIN EC 81 MG TABEC PO SCH (08:05)
[2016-08-27] MEDS: SODIUM CHLORIDE 0.9% FLUSH 5 ML FLUSH IV FLUSH SCH ×2 (08:05→20:03)
[2016-08-27] MEDS: METOPROLOL TARTRATE 25 MG TAB PO SCH ×2 (08:05→20:03)
--- NOTE | 2016-08-27 10:39 | HHI.PR ---
Subjective Remarks Follow-up unstable angina 08/26/16-patient seen and examined early this morning, still free of chest pain and denies any shortness of breath. Currently nothing by mouth and plan for left heart catheterization 08/27/16-patient seen and examined, he is status post left heart catheterization with finding of multivessel coronary artery disease. CTS has been consulted. Currently denies any chest pain or shortness of breath. Family by the bedside. Case discussed with Dr. Leyva, cardiology Objective Vitals Vital Signs Date Time Temp Pulse Resp B/P Pulse Ox O2 Delivery O2 Flow Rate FiO2 08/27/16 08:00 98.3 60 18 139/77 98 08/27/16 06:00 61 08/27/16 05:04 98.0 62 18 120/60 98 08/27/16 05:00 63 08/27/16 04:00 61 08/27/16 03:00 65 08/27/16 01:00 66 08/27/16 00:10 94 08/27/16 00:00 64 08/27/16 00:00 98.2 66 18 112/62 98 08/26/16 23:00 66 08/26/16 22:00 62 08/26/16 21:00 60 08/26/16 20:00 65 08/26/16 19:30 98.2 64 18 126/60 98 08/26/16 19:00 64 08/26/16 18:00 65 08/26/16 17:00 68 08/26/16 16:00 80 08/26/16 16:00 98.5 72 18 133/69 98 I/O 08/26/16 08/26/16 08/26/16 08/27/16 08/27/16 08/27/16 07:00 15:00 23:00 07:00 15:00 23:00 Intake Total 0 ml 240 ml Output Total 600 ml Balance 0 ml -360 ml Intake Oral 0 ml 240 ml Output Urine Total 600 ml # Voids 2 # Bowel Movements 0 Result Diagram: 08/27/16 0334 08/27/16333 Imaging Last Impressions Lower Extremity Ultrasound 08/26/16 0000 Signed Impressions: Service Date/Time: Friday, August 26, 2016 14:36 - CONCLUSION: 1. Venous mapping as above Esau Morataya MD Carotid Artery Ultrasound 08/26/16 0000 Signed Impressions: Service Date/Time: Friday, August 26, 2016 14:14 - CONCLUSION: Negative examination for a hemodynamically significant carotid stenosis. Aydin Ken MD Chest X-Ray 08/25/16 1510 Signed Impressions: Service Date/Time: August 15:32 - CONCLUSION: 1. No acute cardiopulmonary disease. Esau Morataya MD Objective Remarks GENERAL: NAD SKIN: Warm and dry. HEAD: Normocephalic. EYES: No scleral icterus. No injection or drainage. NECK: Supple, trachea midline. No JVD or lymphadenopathy. CARDIOVASCULAR: Regular rate and rhythm without murmurs, gallops, or rubs. RESPIRATORY: Breath sounds equal bilaterally. No accessory muscle use. GASTROINTESTINAL: Abdomen soft, non-tender, nondistended. MUSCULOSKELETAL: No cyanosis, or edema. BACK: Nontender without obvious deformity. No CVA tenderness. A/P Problem List: (1) Unstable angina ICD Code: I20.0 Status: Acute (2) BPH (benign prostatic hyperplasia) ICD Code: N40.0 Status: Chronic (3) HLD (hyperlipidemia) ICD Code: E78.5 Status: Chronic (4) DM type 2 (diabetes mellitus, type 2) ICD Code: E11.9 Status: Chronic (5) HTN (hypertension) ICD Code: I10 Status: Chronic Assessment and Plan 56-year-old male with Multivessel coronary artery disease: Status post left heart catheterization ; cardiothoracic surgery has been consulted and planned for CABG 08/29/16. Lower extremity Doppler negative. Carotid ultrasound bilateral unremarkable. Currently on heparin drip/Imdur, beta urvashi, statin, nitroglycerin when necessary Chest pain, angina unstable - EKG interpreted by la sinus rhythm with nonspecific ST to T wave elevation. Status post left heart catheterization with finding of multivessel coronary disease. Management as above Hyperlipidemia: On statin HTN - on lisinopril 20mg, ASA 81 mg, hydrochlorothiazide 12.5 mg DM 2 - continue to hold off on metformin for now. - Monitor Accu-Cheks, started on insulin sliding scale BPH - restart home medication Flomax after cardiac catheter DVT prop SCDs Problem Qualifiers (1) DM type 2 (diabetes mellitus, type 2): Johnny De Oliveira MD Aug 27, 2016 10:39
--- NOTE | 2016-08-27 11:25 | PD.CARD.PN ---
Subjective Subjective Remarks No chest pain, no shortness of breath Objective Medications Current Medications Medications (Trade) Dose Ordered Sig/Sakina Route Start Time Stop Time Status Last Admin (Zofran Inj) 4 mg Q6H PRN IVP 08/25/16 17:45 (Dulcolax Supp) 10 mg DAILY PRN MT 08/25/16 17:45 (Milk Of Magnesia Liq) 30 ml Q12H PRN PO 08/25/16 17:45 (Narcan Inj) 0.4 mg UNSCH PRN IV 08/25/16 17:45 (Nitrostat Sl) 0.3 mg Q5M PRN SL 08/25/16 17:45 (D50w (Vial) Inj) 25 ml UNSCH PRN IV PUSH 08/25/16 17:45 (Glucagon Inj) 1 mg UNSCH PRN OTHER 08/25/16 17:45 (Tylenol) 650 mg Q4H PRN PO 08/25/16 18:15 (Tums Chew) 1,000 mg TID PRN CHEW 08/25/16 18:15 (Restoril) 15 mg HS PRN PO 08/25/16 18:15 (Ecotrin Ec) 81 mg DAILY PO 08/26/16 09:00 08/27/16 08:05 (Lipitor) 40 mg HS PO 08/25/16 21:00 08/26/16 21:23 (Imdur) 30 mg BID PO 08/25/16 21:00 08/27/16 08:04 (NS Flush) 2 ml BID IV FLUSH 08/26/16 21:00 (NS Flush) 2 ml UNSCH PRN IV FLUSH 08/26/16 12:00 (Lopressor) 12.5 mg Q12HR PO 08/26/16 21:00 08/27/16 08:05 Miscellaneous 1 ea 1 ea UNSCH PRN OTHER 08/26/16 12:30 (Heparin-D5W Inj) 250 ml @ 0 mls/hr TITRATE IV 08/26/16 17:00 08/26/16 18:24 Vital Signs / I&O Vital Signs Date Time Temp Pulse Resp B/P Pulse Ox O2 Delivery O2 Flow Rate FiO2 08/27/16 08:00 98.3 60 18 139/77 98 08/27/16 06:00 61 08/27/16 05:04 98.0 62 18 120/60 98 08/27/16 05:00 63 08/27/16 04:00 61 08/27/16 03:00 65 08/27/16 01:00 66 08/27/16 00:10 94 08/27/16 00:00 64 08/27/16 00:00 98.2 66 18 112/62 98 08/26/16 23:00 66 08/26/16 22:00 62 08/26/16 21:00 60 08/26/16 20:00 65 08/26/16 19:30 98.2 64 18 126/60 98 08/26/16 19:00 64 08/26/16 18:00 65 08/26/16 17:00 68 08/26/16 16:00 80 08/26/16 16:00 98.5 72 18 133/69 98 I/O 08/26/16 08/26/16 08/26/16 08/27/16 08/27/16 08/27/16 07:00 15:00 23:00 07:00 15:00 23:00 Intake Total 0 ml 240 ml Output Total 600 ml Balance 0 ml -360 ml Intake Oral 0 ml 240 ml Output Urine Total 600 ml # Voids 2 # Bowel Movements 0 Physical Exam GENERAL: NAD, AAOx3 SKIN: Warm and dry. HEAD: Atraumatic. Normocephalic. EYES: Pupils equal and round. No scleral icterus. No injection or drainage. ENT: No nasal bleeding or discharge. Mucous membranes pink and moist. NECK: Trachea midline. No JVD. CARDIOVASCULAR: Regular rate and rhythm. RESPIRATORY: No accessory muscle use. Clear to auscultation. Breath sounds equal bilaterally. GASTROINTESTINAL: Abdomen soft, non-tender, nondistended. Hepatic and splenic margins not palpable. MUSCULOSKELETAL: Extremities without clubbing, cyanosis, or edema. No obvious deformities. Right radial no hematoma NEUROLOGICAL: Awake and alert. No obvious cranial nerve deficits. Motor grossly within normal limits. Five out of 5 muscle strength in the arms and legs. Normal speech. PSYCHIATRIC: Appropriate mood and affect; insight and judgment normal. Laboratory Laboratory Tests Test 08/26/16 08/26/16 08/26/16 08/26/16 16:15 17:05 20:00 23:13 Nasal Screen MRSA (PCR) NEGATIVE Prothrombin Time 10.0 SEC Prothromb Time International 0.9 RATIO Ratio Activated Partial 29.2 SEC 28.5 SEC Thromboplast Time Urine Color YELLOW Urine Turbidity CLEAR Urine pH 6.5 Urine Specific [place] 1.034 Urine Protein TRACE mg/dL Urine Glucose (UA) NEG mg/dL Urine Ketones NEG mg/dL Urine Occult Blood NEG Urine Nitrite NEG Urine Bilirubin NEG Urine Urobilinogen 2.0 MG/DL Urine Leukocyte Esterase NEG Urine WBC 1 /hpf Urine Squamous Epithelial 2 /hpf Cells Urine Mucus FEW /lpf Microscopic Urinalysis Comment CULT NOT INDICATED Test 08/27/16 03:34 White Blood Count 6.7 TH/MM3 Red Blood Count 4.53 MIL/MM3 Hemoglobin 13.3 GM/DL Hematocrit 38.3 % Mean Corpuscular Volume 84.4 FL Mean Corpuscular Hemoglobin 29.3 PG Mean Corpuscular Hemoglobin 34.8 % Concent Red Cell Distribution Width 13.5 % Platelet Count 256 TH/MM3 Mean Platelet Volume 9.4 FL Neutrophils (%) (Auto) 51.8 % Lymphocytes (%) (Auto) 34.0 % Monocytes (%) (Auto) 8.3 % Eosinophils (%) (Auto) 5.6 % Basophils (%) (Auto) 0.3 % Neutrophils # (Auto) 3.5 TH/MM3 Lymphocytes # (Auto) 2.3 TH/MM3 Monocytes # (Auto) 0.6 TH/MM3 Eosinophils # (Auto) 0.4 TH/MM3 Basophils # (Auto) 0.0 TH/MM3 CBC Comment DIFF FINAL Differential Comment Activated Partial 33.9 SEC Thromboplast Time Sodium Level 137 MEQ/L Potassium Level 3.6 MEQ/L Chloride Level 102 MEQ/L Carbon Dioxide Level 29.5 MEQ/L Anion Gap 6 MEQ/L Blood Urea Nitrogen 19 MG/DL Creatinine 0.89 MG/DL Estimat Glomerular Filtration 88 ML/MIN Rate Random Glucose 145 MG/DL Calcium Level 8.8 MG/DL Triglycerides Level 223 MG/DL Cholesterol Level 149 MG/DL LDL Cholesterol 67 MG/DL HDL Cholesterol 37.0 MG/DL Cholesterol/HDL Ratio 4.02 RATIO Assessment and Plan Problem List: (1) Unstable angina (2) Multi-vessel coronary artery stenosis (3) HLD (hyperlipidemia) (4) HTN (hypertension) (5) DM type 2 (diabetes mellitus, type 2) Assessment and Plan 1) MVCAD for planned CABG Monday 2) 2D echo pending 3) Continue heparin gtt for unstable angina Problem Qualifiers (1) DM type 2 (diabetes mellitus, type 2): Jean-Claude Leyva DO Aug 27, 2016 11:25
--- NOTE | 2016-08-27 12:41 | EC ---
Study Study Date:08/27/2016 STUDY CONCLUSIONS SUMMARY - Left ventricle: The cavity size was normal. Wall thickness was normal. Systolic function was normal. The estimated ejection fraction was in the range of 55% to 60%. Wall motion was normal; there were no regional wall motion abnormalities. - Aortic valve: Valve area: 2.27cm^2(VTI). Valve area: 2.22cm^2 (Vmax). - Mitral valve: Mildly calcified annulus. Valve area by continuity equation (using LVOT flow): 1.55cm^2. If LV function is below 40, please consider prescribing an ACEI or ARB or document rationale for non-use. PROCEDURE DATA STUDY STATUS: Elective. Procedure: Transthoracic echocardiography. Image quality was good. Scanning was performed from the parasternal, apical, and subcostal acoustic windows. Study completion: The patient tolerated the procedure well. Transthoracic echocardiography. M-mode, complete 2D, complete spectral Doppler, and color Doppler. Height: Height: 72in. Weight: Weight: 212.6lb. Body mass index: BMI: 28.9kg/m^2. Body surface area: BSA: 2.19m^2. Patient status: Inpatient. CARDIAC ANATOMY LEFT VENTRICLE: The cavity size was normal. Wall thickness was normal. Systolic function was normal. The estimated ejection fraction was in the range of 55% to 60%. Wall motion was normal; there were no regional wall motion abnormalities. AORTIC VALVE: Trileaflet; normal thickness leaflets. Doppler: Transvalvular velocity was within the normal range. There was no stenosis. No regurgitation. Valve area: 2.27cm^2(VTI). Indexed valve area: 1.04cm^2/m^2 (VTI). Valve area: 2.22cm^2 (Vmax). Indexed valve area: 1.01cm^2/m^2 (Vmax). Mean gradient: 4mm Hg (S). AORTA: Aortic root: The aortic root was normal in size. MITRAL VALVE: Mildly calcified annulus. Doppler: Transvalvular velocity was within the normal range. There was no evidence for stenosis. No regurgitation. Valve area by continuity equation (using LVOT flow): 1.55cm^2. Indexed valve area by continuity equation (using LVOT flow): 0.71cm^2/m^2. Mean gradient: 2mm Hg (D). Peak gradient: 5mm Hg (D). LEFT ATRIUM: severely enlarged The atrium was normal in size. RIGHT VENTRICLE: The cavity size was normal. Wall thickness was normal. PULMONIC VALVE: Doppler: Transvalvular velocity was within the normal range. There was no evidence for stenosis. No regurgitation. TRICUSPID VALVE: Structurally normal valve. Doppler: Transvalvular velocity was within the normal range. No regurgitation. PULMONARY ARTERY: The main pulmonary artery was normal-sized. Systolic pressure was within the normal range. RIGHT ATRIUM: The atrium was normal in size. PERICARDIUM: There was no pericardial effusion. SYSTEMIC VEINS: Inferior vena cava: The vessel was normal in size. Patient weight: 212.6lb _Ejection fraction:_ 65-75% _Fractional shortening:_ 32% up to 5Kg 5-11.5Kg 11.6-22.9Kg 23-45Kg 45-57Kg Aortic Root 7-13 <17 13-22 17-27 17-27 LA diam 6-13 <23 24-38 33-47 37-40 RVID 10-17 7-15 7-15 7-18 8-17 LVIDd 12-22 <32 24-38 33-47 37-40 LVPW 2-4 3-6 5-7 6-8 7-8 IVS 2-4 3-6 5-7 6-8 7-8 BASIC MEASUREMENTS ADULT NORMAL Left ventricle LV internal dimension, ED, chordal *53.6 mm 43-52 level, PLAX LV internal dimension, ES, chordal *38.9 mm 23-38 level, PLAX Fractional shortening, chordal level, *27 % >29 PLAX LV posterior wall thickness, ED 10.3 mm IVS/LVPW ratio, ED 1 <1.3 Ventricular septum Septal thickness, ED 10.3 mm Aortic valve Leaflet separation 19 mm 15-26 Aorta Root diameter, ED 34 mm Left atrium Anterior-posterior dimension 50 mm Anterior-posterior dimension index *2.28 cm/m^2 <2.2 BASIC MEASUREMENTS ADULT NORMAL Aortic valve Leaflet separation 19 mm 15-26 DOPPLER MEASUREMENTS ADULT NORMAL Main pulmonary artery Pressure, S 23 mm Hg =30 Aortic valve Peak velocity, S 136 cm/s Mean velocity, S 91.4 cm/s VTI, S 41.1 cm Mean gradient, S 4 mm Hg Valve area, VTI 2.27 cm^2 Valve area index, VTI 1.04 cm^2/m^2 Valve area, Vmax 2.22 cm^2 Valve area index, Vmax 1.01 cm^2/m^2 Mitral valve Peak E-wave velocity 104 cm/s Peak A-wave velocity 78 cm/s Mean velocity, D 72.7 cm/s Deceleration time *243 ms 150-230 Mean gradient, D 2 mm Hg Peak gradient, D 5 mm Hg Peak E/A ratio 1.3 Valve area, LVOT continuity 1.55 cm^2 Valve area index, LVOT continuity 0.71 cm^2/m^2 Tricuspid valve Regurgitant peak velocity 208 cm/s Peak RV-RA gradient, S 17 mm Hg Maximal regurgitant velocity 208 cm/s Systemic veins Estimated CVP 5 mm Hg Right ventricle RV pressure, S 27 mm Hg <30 Pulmonic valve Peak velocity, S 103 cm/s LEGEND: Mean values are shown as u=mean value. Asterisk (*) mckinnon values outside specified normal range. Prepared and signed by Earle Boykin [id number]
[2016-08-27] MEDS: HEPARIN-D5W INJ 250 ML IV SCH (13:17)
[2016-08-27 14:21] LABS: APTT (PATIENT) 34.4 SEC (24.3-30.1)
[2016-08-27] MEDS: ATORVASTATIN 40 MG TAB PO SCH (20:03)
[2016-08-27 20:10] LABS: APTT (PATIENT) 35.7 SEC (24.3-30.1)
[2016-08-28] VITALS (15 sets, daily range): BP systolic 115–149; BP diastolic 69–79; PULSE 52–69; RESP 18–20; TEMP 97.9–98.5; O2SAT 96–100
[2016-08-28 05:03] LABS: HEMATOCRIT 40.5 % (39.0-51.0); MEAN CELL VOLUME 84.4 FL (80.0-100.0); MEAN CORPUSCULAR HGB CONC 34.4 % (32.0-36.0); PLATELET COUNT 261 TH/MM3 (150-450); RED CELL DISTRIBUTION WIDTH 13.2 % (11.6-17.2); REVIEW FLAG FINAL; WHITE BLOOD COUNT 6.6 TH/MM3 (4.0-11.0)
[2016-08-28] MEDS: HEPARIN-D5W INJ 250 ML IV SCH ×2 (07:00→22:05)
[2016-08-28] MEDS: INSULIN ASPART SUPPLEMENTAL SCALE SQ SCH ×4 (07:01→21:00)
--- NOTE | 2016-08-28 08:29 | HHI.PR ---
Subjective Remarks Follow-up unstable angina/multivessel coronary artery disease 08/26/16-patient seen and examined early this morning, still free of chest pain and denies any shortness of breath. Currently nothing by mouth and plan for left heart catheterization 08/27/16-patient seen and examined, he is status post left heart catheterization with finding of multivessel coronary artery disease. CTS has been consulted. Currently denies any chest pain or shortness of breath. Family by the bedside. Case discussed with Dr. Leyva, cardiology 08/28/16-patient seen and examined, complains of one episode of chest pain around 3 AM however now resolved. No other issues overnight Objective Vitals Vital Signs Date Time Temp Pulse Resp B/P Pulse Ox O2 Delivery O2 Flow Rate FiO2 08/28/16 07:00 58 08/28/16 04:00 54 08/28/16 04:00 Room Air 08/28/16 04:00 98.1 54 20 132/79 96 08/28/16 00:00 98.2 52 18 121/74 100 08/28/16 00:00 Room Air 08/28/16 00:00 61 08/27/16 23:00 54 08/27/16 22:00 66 08/27/16 21:00 60 08/27/16 20:00 98.7 66 18 137/75 98 08/27/16 20:00 Room Air 08/27/16 20:00 66 08/27/16 19:00 64 08/27/16 17:00 65 08/27/16 16:00 67 08/27/16 16:00 98.0 65 18 156/81 97 08/27/16 15:00 67 08/27/16 14:00 65 08/27/16 13:00 64 08/27/16 12:00 63 08/27/16 12:00 97.6 66 18 141/71 95 08/27/16 11:00 64 I/O 08/27/16 08/27/16 08/27/16 08/28/16 08/28/16 08/28/16 07:00 15:00 23:00 07:00 15:00 23:00 Intake Total 930 ml 792 ml Output Total 1000 ml Balance 930 ml -208 ml Intake Oral 930 ml 340 ml IV Total 452 ml Output Urine Total 1000 ml # Voids 5 # Bowel Movements 2 0 Result Diagram: 08/28/16 0435 08/27/16 0334 Imaging Last Impressions Lower Extremity Ultrasound 08/26/16 0000 Signed Impressions: Service Date/Time: Friday, August 26, 2016 14:36 - CONCLUSION: 1. Venous mapping as above Esau Morataya MD Carotid Artery Ultrasound 08/26/16 0000 Signed Impressions: Service Date/Time: Friday, August 26, 2016 14:14 - CONCLUSION: Negative examination for a hemodynamically significant carotid stenosis. Aydin Ken MD Chest X-Ray 08/25/16 1510 Signed Impressions: Service Date/Time: August 15:32 - CONCLUSION: 1. No acute cardiopulmonary disease. Esau Morataya MD Objective Remarks GENERAL: NAD SKIN: Warm and dry. HEAD: Normocephalic. EYES: No scleral icterus. No injection or drainage. NECK: Supple, trachea midline. No JVD or lymphadenopathy. CARDIOVASCULAR: Regular rate and rhythm without murmurs, gallops, or rubs. RESPIRATORY: Breath sounds equal bilaterally. No accessory muscle use. GASTROINTESTINAL: Abdomen soft, non-tender, nondistended. MUSCULOSKELETAL: No cyanosis, or edema. BACK: Nontender without obvious deformity. No CVA tenderness. A/P Problem List: (1) Unstable angina ICD Code: I20.0 Status: Acute (2) BPH (benign prostatic hyperplasia) ICD Code: N40.0 Status: Chronic (3) HLD (hyperlipidemia) ICD Code: E78.5 Status: Chronic (4) DM type 2 (diabetes mellitus, type 2) ICD Code: E11.9 Status: Chronic (5) HTN (hypertension) ICD Code: I10 Status: Chronic Assessment and Plan 56-year-old male with Multivessel coronary artery disease: Status post left heart catheterization ; cardiothoracic surgery has been consulted and plan for CABG tomorrow . Lower extremity Doppler negative. Carotid ultrasound bilateral unremarkable. Currently on heparin drip/Imdur, beta urvashi, statin, nitroglycerin when necessary Chest pain, angina unstable - EKG interpreted by me sinus rhythm with nonspecific ST to T wave elevation. Status post left heart catheterization with finding of multivessel coronary disease. Management as above Hyperlipidemia: On statin HTN - on lisinopril 20mg, ASA 81 mg, hydrochlorothiazide 12.5 mg DM 2 - continue to hold off on metformin . - Monitor Accu-Cheks, started on insulin sliding scale BPH - restart home medication Flomax DVT prop SCDs Problem Qualifiers (1) DM type 2 (diabetes mellitus, type 2): Johnny De Oliveira MD Aug 28, 2016 08:29
[2016-08-28 09:58] LABS: HEMOGLOBIN A1b 1.8 %; HEMOGLOBIN Ao 83.7 %; HEMOGLOBIN LA1C 2.4 %; HEMOGLOBIN P3 4.2 %
[2016-08-28] MEDS: ASPIRIN EC 81 MG TABEC PO SCH (10:27)
[2016-08-28] MEDS: ISOSORBIDE MONONITRATE 30 MG TAB PO SCH ×2 (10:27→22:07)
[2016-08-28] MEDS: METOPROLOL TARTRATE 25 MG TAB PO SCH ×2 (10:27→22:07)
[2016-08-28] MEDS: SODIUM CHLORIDE 0.9% FLUSH 5 ML FLUSH IV FLUSH SCH ×2 (10:27→21:00)
--- NOTE | 2016-08-28 12:05 | PD.CARD.PN ---
Subjective Subjective Remarks Mild chest pain over night, felt more anxious than anything, no shortness of breath Objective Medications Current Medications Medications (Trade) Dose Ordered Sig/Sakina Route Start Time Stop Time Status Last Admin (Zofran Inj) 4 mg Q6H PRN IVP 08/25/16 17:45 (Dulcolax Supp) 10 mg DAILY PRN ND 08/25/16 17:45 (Milk Of Magnesia Liq) 30 ml Q12H PRN PO 08/25/16 17:45 (Narcan Inj) 0.4 mg UNSCH PRN IV 08/25/16 17:45 (Nitrostat Sl) 0.3 mg Q5M PRN SL 08/25/16 17:45 (D50w (Vial) Inj) 25 ml UNSCH PRN IV PUSH 08/25/16 17:45 (Glucagon Inj) 1 mg UNSCH PRN OTHER 08/25/16 17:45 (Tylenol) 650 mg Q4H PRN PO 08/25/16 18:15 (Tums Chew) 1,000 mg TID PRN CHEW 08/25/16 18:15 (Restoril) 15 mg HS PRN PO 08/25/16 18:15 (Ecotrin Ec) 81 mg DAILY PO 08/26/16 09:00 08/28/16 10:27 (Lipitor) 40 mg HS PO 08/25/16 21:00 08/27/16 20:03 (Imdur) 30 mg BID PO 08/25/16 21:00 08/28/16 10:27 (NS Flush) 2 ml BID IV FLUSH 08/26/16 21:00 08/28/16 10:27 (NS Flush) 2 ml UNSCH PRN IV FLUSH 08/26/16 12:00 (Lopressor) 12.5 mg Q12HR PO 08/26/16 21:00 08/28/16 10:27 Miscellaneous 1 ea 1 ea UNSCH PRN OTHER 08/26/16 12:30 (Heparin-D5W Inj) 250 ml @ 0 mls/hr TITRATE IV 08/26/16 17:00 08/28/16 07:00 (Flomax) 0.4 mg HS PO 08/28/16 21:00 Vital Signs / I&O Vital Signs Date Time Temp Pulse Resp B/P Pulse Ox O2 Delivery O2 Flow Rate FiO2 08/28/16 07:00 58 08/28/16 04:00 54 08/28/16 04:00 Room Air 08/28/16 04:00 98.1 54 20 132/79 96 08/28/16 00:00 98.2 52 18 121/74 100 08/28/16 00:00 Room Air 08/28/16 00:00 61 08/27/16 23:00 54 08/27/16 22:00 66 08/27/16 21:00 60 08/27/16 20:00 98.7 66 18 137/75 98 08/27/16 20:00 Room Air 08/27/16 20:00 66 08/27/16 19:00 64 08/27/16 17:00 65 08/27/16 16:00 67 08/27/16 16:00 98.0 65 18 156/81 97 08/27/16 15:00 67 08/27/16 14:00 65 08/27/16 13:00 64 I/O 08/27/16 08/27/16 08/27/16 08/28/16 08/28/16 08/28/16 07:00 15:00 23:00 07:00 15:00 23:00 Intake Total 930 ml 792 ml Output Total 1000 ml Balance 930 ml -208 ml Intake Oral 930 ml 340 ml IV Total 452 ml Output Urine Total 1000 ml # Voids 5 # Bowel Movements 2 0 Physical Exam GENERAL: NAD, AAOx3 SKIN: Warm and dry. HEAD: Atraumatic. Normocephalic. EYES: Pupils equal and round. No scleral icterus. No injection or drainage. ENT: No nasal bleeding or discharge. Mucous membranes pink and moist. NECK: Trachea midline. No JVD. CARDIOVASCULAR: Regular rate and rhythm. RESPIRATORY: No accessory muscle use. Clear to auscultation. Breath sounds equal bilaterally. GASTROINTESTINAL: Abdomen soft, non-tender, nondistended. Hepatic and splenic margins not palpable. MUSCULOSKELETAL: Extremities without clubbing, cyanosis, or edema. No obvious deformities. Right radial no hematoma NEUROLOGICAL: Awake and alert. No obvious cranial nerve deficits. Motor grossly within normal limits. Five out of 5 muscle strength in the arms and legs. Normal speech. PSYCHIATRIC: Appropriate mood and affect; insight and judgment normal. Laboratory Laboratory Tests Test 08/27/16 08/27/16 08/28/16 08/28/16 13:45 19:15 04:35 06:10 Activated Partial 34.4 SEC 35.7 SEC 29.0 SEC Thromboplast Time White Blood Count 6.6 TH/MM3 Red Blood Count 4.80 MIL/MM3 Hemoglobin 13.9 GM/DL Hematocrit 40.5 % Mean Corpuscular Volume 84.4 FL Mean Corpuscular Hemoglobin 29.0 PG Mean Corpuscular Hemoglobin 34.4 % Concent Red Cell Distribution Width 13.2 % Platelet Count 261 TH/MM3 Mean Platelet Volume 8.8 FL Hemoglobin A1c 6.4 % Blood Type O POSITIVE O POSITIVE Antibody Screen NEGATIVE Crossmatch Leukocyte-Reduced Red Blood Cells Blood Bank Comment Assessment and Plan Problem List: (1) Unstable angina (2) Multi-vessel coronary artery stenosis (3) HLD (hyperlipidemia) (4) HTN (hypertension) (5) DM type 2 (diabetes mellitus, type 2) Assessment and Plan 1) MVCAD for planned CABG Monday 2) EF 55-60% 3) Continue heparin gtt for unstable angina 4) If chest pain, can give nitro SL Problem Qualifiers (1) DM type 2 (diabetes mellitus, type 2): Jean-Claude Leyva DO Aug 28, 2016 12:05
[2016-08-28 15:47] LABS: APTT (PATIENT) 41.4 SEC (24.3-30.1)
[2016-08-28 19:49] LABS: APTT (PATIENT) 43.4 SEC (24.3-30.1)
[2016-08-28] MEDS: ATORVASTATIN 40 MG TAB PO SCH (22:07)
[2016-08-28] MEDS: TAMSULOSIN HCL 0.4 MG CAP PO SCH (22:12)
[2016-08-28] MEDS ORDERED: NEXI20CA PO (22:24)
[2016-08-28] MEDS ORDERED: PANTOPRAZOLE SOD 20 MG DELAYED RELEASE TAB PO SCH (22:45)
[2016-08-28] MEDS: SODIUM CHLORID 0.9% 500 ML IV SCH (23:15)
[2016-08-28] MEDS ORDERED: INSULIN HUMAN REGULAR 1,000 UNITS/10 ML VIAL SQ PRN (23:15)
[2016-08-28] MEDS: LACTATED RINGER'S 1000 ML IV SCH (23:15)
[2016-08-28] MEDS ORDERED: METOPROLOL TARTRATE 25 MG TAB PO PRN (23:15)
[2016-08-29] VITALS (12 sets, daily range): BP systolic 110–146; BP diastolic 58–80; PULSE 59–69; RESP 18–20; TEMP 97–98.8; O2SAT 97–99
[2016-08-29] MEDS ORDERED: NITROGLYCERIN-DEXTROSE INJ 250 ML IV ONE (05:00)
[2016-08-29] MEDS ORDERED: AMINOCAPROIC ACID INJ 250 MG/ML 20 ML VIAL IV ONE (05:00)
[2016-08-29] MEDS ORDERED: CALCIUM CHLORIDE 10% SOLN 1 GRAM/10 ML SYR IV ONE (05:00)
[2016-08-29] MEDS ORDERED: LIDOCAINE HCL 1% 30 ML VIAL OTHER ONE (05:00)
[2016-08-29] MEDS ORDERED: HEPARIN SODIUM - SQ 10,000 UNITS/ML VIAL SQ ONE (05:00)
[2016-08-29] MEDS ORDERED: DEXMEDETOMIDINE INJ 50 ML IV ONE (05:00)
[2016-08-29] MEDS ORDERED: LIDOCAINE HCL 2% 100 MG/5 ML SYRINGE IV PUSH ONE (05:00)
[2016-08-29] MEDS ORDERED: MAGNESIUM SULFATE 1000 MG/2 ML VIAL (PED) IV ONE (05:00)
[2016-08-29] MEDS ORDERED: VECURONIUM BROMIDE 10 MG VIAL IV ONE (05:00)
[2016-08-29] MEDS ORDERED: ACETAMINOPHEN 1000 MG/100 ML VIAL IV ONE (05:00)
[2016-08-29] MEDS ORDERED: PHENYLEPHRINE HCL 10 MG/ML VIAL IV ONE (05:00)
[2016-08-29] MEDS ORDERED: PROTAMINE SULFATE 250 MG/25 ML VIAL IV ONE ×2 (05:00→10:25)
[2016-08-29] MEDS: INSULIN ASPART SUPPLEMENTAL SCALE SQ SCH ×4 (05:10→21:00)
[2016-08-29 05:21] LABS: APTT (PATIENT) 47.6 SEC (24.3-30.1)
[2016-08-29] MEDS ORDERED: HEPARIN SODIUM - SQ 10,000 UNITS/ML VIAL ONE (06:21)
[2016-08-29] MEDS ORDERED: VANCOMYCIN HCL 1000 MG VIAL ONE (06:21)
[2016-08-29] MEDS ORDERED: HEPARIN SODIUM - IV 10,000 UNITS/10 ML VIAL ONE (06:21)
[2016-08-29] MEDS ORDERED: MIDAZOLAM HCL 5 MG/5 ML VIAL ONE ×2 (06:53)
[2016-08-29] MEDS ORDERED: fentaNYL CITRATE 1000 MCG/20 ML VIAL ONE (06:54)
[2016-08-29] MEDS: METOPROLOL TARTRATE 25 MG TAB PO SCH ×2 (09:00→21:26)
[2016-08-29] MEDS: ISOSORBIDE MONONITRATE 30 MG TAB PO SCH ×2 (09:00→21:00)
[2016-08-29] MEDS ORDERED: NORMOSOL R INJ 4,000 ML IV ONE (10:25)
[2016-08-29] MEDS ORDERED: LACTATED RINGER'S 1000 ML INJ 500 ML IV PRN (11:14)
[2016-08-29] MEDS: DOBUTamine PREMIX DRIP 250 ML IV SCH (11:14)
[2016-08-29] MEDS ORDERED: NITROGLYCERIN-DEXTROSE INJ 250 ML IV SCH (11:15)
[2016-08-29] MEDS ORDERED: ALBUMIN HUMAN 5% 12.5 GM/250 ML BOTTLE IV PRN (11:15)
[2016-08-29] MEDS ORDERED: INSULIN REGULAR (IV INFUSION) 100 UNITS in SODIUM CHLORIDE 0.9% INJ 99 ML IV SCH (11:15)
[2016-08-29] MEDS ORDERED: SODIUM CHLORIDE 0.9% FLUSH 5 ML FLUSH IV FLUSH PRN (11:15)
[2016-08-29] MEDS ORDERED: ACETAMINOPHEN 325 MG TAB PO PRN (11:15)
[2016-08-29] MEDS ORDERED: DOPamine INJ PREMIX 500 ML IV SCH (11:15)
[2016-08-29] MEDS ORDERED: EPINEPHrine (1:1000) INJ 4 MG in DEXTROSE 5% IN WATER INJ 246 ML IV SCH ×2 (11:15)
[2016-08-29] MEDS ORDERED: ACETAMINOPHEN 650 MG SUPP RECTAL PRN (11:15)
[2016-08-29] MEDS ORDERED: DEXTROSE 50% IN WATER 50 ML VIAL(D50) IV PUSH PRN (11:15)
[2016-08-29] MEDS ORDERED: METOPROLOL TARTRATE 5 MG/5 ML VIAL IV PUSH PRN (11:15)
[2016-08-29] MEDS ORDERED: hydrALAZINE HCL 20 MG/ML VIAL IV PRN (11:15)
[2016-08-29] MEDS ORDERED: PHENYLEPHRINE INJ 40 MG in DEXTROSE 5% IN WATE 500 ML INJ 496 ML IV SCH ×2 (11:15)
[2016-08-29] MEDS ORDERED: POTASSIUM CHLORIDE 20 MEQ CONTROLLED RELEASE TAB PO PRN ×2 (11:15)
[2016-08-29] MEDS ORDERED: MORPHINE SULFATE 4 MG/ML INJ IV PRN (11:15)
[2016-08-29] MEDS ORDERED: CALCIUM CHLORIDE 10% 1 GRAM/10 ML VIAL IV PRN (11:15)
[2016-08-29] MEDS ORDERED: POTASSIUM CHLOR 20 MEQ PREMIX 100 ML IV PRN ×2 (11:15)
[2016-08-29] MEDS ORDERED: CALCIUM CHLORIDE INJ 1 GM in SODIUM CHLORIDE 0.9% INJ 100 ML IV PRN (11:15)
[2016-08-29] MEDS ORDERED: DEXMEDETOMIDINE INJ 50 ML IV SCH (11:15)
[2016-08-29] MEDS ORDERED: Post-op Orders (for Pharmacy) MISC OTHER ONE (11:15)
[2016-08-29] MEDS ORDERED: MAGNESIUM SULFATE INJ 2 GM in SODIUM CHLORIDE 0.9% INJ 100 ML IV PRN ×4 (11:15)
[2016-08-29] MEDS ORDERED: MEPERIDINE HCL 25 MG/ML VIAL IV PRN (11:15)
[2016-08-29] MEDS ORDERED: ONDANSETRON HCL 4 MG/2 ML VIAL IV PUSH PRN (11:15)
[2016-08-29] MEDS ORDERED: CLEVIDIPINE INJ 50 ML IV SCH (11:15)
--- NOTE | 2016-08-29 11:49 | PD.OP ---
cc: Yuliet Jon MD; Jean-Claude Leyva DO Operative Report Date of Surgery: Aug 29, 2016 Preoperative Diagnosis: Postoperative Diagnosis: Procedure: 1. Urgent Off-pump Coronary Artery Bypass Grafting x 3 with reverse saphenous vein graft to Diagonal 1, reverse saphenous vein graft to the OM1, reverse saphenous vein graft to the distal RCA 2. Right Leg Endoscopic Vein [place] 3. Intraoperative Vein Mapping. . Surgeon: Yuliet Jon Finisher Hot Strip(s): Darby Dumont Operation and Findings: PREPROCEDURE DIAGNOSES 1. Severe Multi Vessel Coronary Artery Disease. 2. Diabetes 3. Unstable Angina POSTPROCEDURE DIAGNOSES Same SURGICAL PROCEDURE 1. Urgent Off-pump Coronary Artery Bypass Grafting x 3 with reverse saphenous vein graft to Diagonal 1, reverse saphenous vein graft to the OM1, reverse saphenous vein graft to the distal RCA 2. Right Leg Endoscopic Vein [place] 3. Intraoperative Vein Mapping. SURGEON Yuliet Jon MD DANDY TENDER MILDRED Lund ANESTHESIA General endotracheal . ENTERTAINMENT MANAGER RAEANN Hill, ROAD DRIVER Romario Ramirez MD PREPARATION ChloraPrep. COUNTS Needle, sponge, and instrument counts were correct. DRAINS Two 32-Romansh mediastinal tubes. COMPLICATIONS None. INDICATIONS FOR PROCEDURE The patient is a 56-year-old presenting with chest pain. Patient was noted to have multi-vessel coronary artery disease with spared LAD. The patient is being brought to the operating room for surgical revascularization therapy. PROCEDURE Patient was brought to the operating room and placed supine on the OR table. Following the induction of adequate general endotracheal anesthesia and placement of appropriate monitoring devices, intraoperative vein mapping was performed which revealed suitable-caliber conduit in right lower extremity. The patient was then prepped and draped in standard sterile fashion. Next, 2500 units of intravenous heparin was given. The right greater saphenous vein was harvested endoscopically. This appeared to be a useable-caliber conduit. A median sternotomy was performed. The patient was systemically heparinized and anticoagulation monitored by serial ACT measurements. The pericardium was then divided in the midline, the cradle created and targets analyzed. At this point, all anastomoses were performed in a beating-heart fashion using the Maquet stabilizing system. Segment of saphenous vein graft was anastomosed to the diagonal 1 (1.75 mm) in an end-to-side fashion using 7-0 Prolene. The next segment was anastomosed to the OM1(1.75 mm) in an end-to-side fashion using 7-0 Prolene. The final segment was anastomosed to the distal RCA (2.25 mm) in an end -to-side fashion using a running 7-0 Prolene. The proximal anastomoses were then constructed to the ascending aorta in a running manner using 6-0 Prolene. All anastomotic sites were inspected and appeared to be hemostatic and patent. Protamine solution was given. Strict hemostasis was assured. The closure was undertaken. 2 chest tubes were placed. The pericardium was reapproximated in the midline. The sternum was approximated using sternal wires. The muscular and fascial layer were then closed in 3 layers. The endoscopic vein harvest site was closed in 2 layers. The patient tolerated the procedure well and was transferred to CVICU in stable condition. Yuliet Jon MD Aug 29, 2016 11:49
[2016-08-29] MEDS ORDERED: RESP: ALBUTEROL 2.5 MG/IPRATROPIUM 0.5 MG NEB (PRN) NEB (12:30)
[2016-08-29] MEDS ORDERED: RESP: RACEPINEPHRINE 2.25% 0.5 ML NEB NEB PRN (12:30)
[2016-08-29] MEDS: POTASSIUM CHLOR 20 MEQ PREMIX 100 ML IV PRN ×2 (13:29→17:25)
[2016-08-29] MEDS: ACETAMINOPHEN 1000 MG/100 ML VIAL IV SCH ×2 (13:30→17:29)
[2016-08-29] MEDS: ceFAZolin 2 GM PREMIX 50 ML IV SCH ×2 (13:38→21:28)
--- NOTE | 2016-08-29 13:48 | RADRPT ---
EXAM DATE/TIME: 08/29/2016 12:38 [facility] COMPARISON: CHEST SINGLE AP, August 25, 2016, 15:32. INDICATIONS : Post CABG. MEDICAL HISTORY : Diabetes mellitus type II. SURGICAL HISTORY : None. Stents. ENCOUNTER: Initial ACUITY: 1 day PAIN SCORE: Non-responsive. LOCATION: Bilateral chest FINDINGS: A single portable frontal view the chest shows interval median sternotomy. 2 thoracostomy tubes overl ie the midline. An endotracheal tube tip is 4 cm proximal to the dorota. Nasogastric tube tip courses off the inferior margin of the film. A right-sided central line noted. No pneumothorax. Heart is nor mal in size. Bibasilar atelectasis. No effusions. CONCLUSION: Interval median sternotomy with life-support lines. No pneumothorax. Bibasilar atelectasis. Quentin Crow Jr., MD on August 29, 2016 at 13:45 Board Certified Radiologist. This report was verified electronically.
[2016-08-29] MEDS: SODIUM CHLORID 0.9% 500 ML IV SCH (14:46)
--- NOTE | 2016-08-29 16:16 | PD.CAR.PN ---
CVT Progress Note Subjective/Hospital Course: sts data discussed with pt RISK SCORES About the STS Risk Calculator Procedure: CAB Only Risk of Mortality: 0.449% Morbidity or Mortality: 7.415% Long Length of Stay: 2.261% Short Length of Stay: 65.209% Permanent Stroke: 0.516% Prolonged Ventilation: 5.069% DSW Infection: 0.431% Renal Failure: 1.372% Reoperation: 2.952% Objective: Vital Signs Date Time Temp Pulse Resp B/P Pulse Ox O2 Delivery O2 Flow Rate FiO2 08/29/16 16:00 61 08/29/16 15:00 98.6 62 20 128/58 97 08/29/16 14:32 18 08/29/16 14:00 98.4 60 20 110/64 97 08/29/16 13:17 97 Nasal Cannula 4 08/29/16 12:25 95 Mechanical Ventilator 50 08/29/16 12:04 65 08/29/16 12:04 97.4 08/29/16 11:47 97 50 08/29/16 04:00 97.0 62 18 131/76 97 08/29/16 04:00 62 08/29/16 00:00 98.8 59 18 121/70 97 08/29/16 00:00 59 08/28/16 20:00 69 08/28/16 20:00 98.5 69 18 130/72 97 08/28/16 20:00 97 Room Air 08/28/16 18:00 64 08/28/16 17:00 67 Result Diagram: 08/28/16 0435 08/27/16 0334 (1) Unstable angina (2) Multi-vessel coronary artery stenosis (3) HLD (hyperlipidemia) (4) HTN (hypertension) (5) DM type 2 (diabetes mellitus, type 2) Problem Qualifiers (1) DM type 2 (diabetes mellitus, type 2): Shameka Cunningham Aug 29, 2016 16:16
[2016-08-29] MEDS: RESP: ALBUTEROL 2.5 MG/IPRATROPIUM 0.5 MG NEB (SCH) NEB (16:17)
--- NOTE | 2016-08-29 17:11 | PD.CARD.PN ---
Subjective Subjective Remarks Doing well post-op, mild anticipated pain Objective Medications Current Medications Medications (Trade) Dose Ordered Sig/Sakina Route Start Time Stop Time Status Last Admin (Dulcolax Supp) 10 mg DAILY PRN ME 08/25/16 17:45 (Milk Of Magnesia Liq) 30 ml Q12H PRN PO 08/25/16 17:45 (Narcan Inj) 0.4 mg UNSCH PRN IV 08/25/16 17:45 (Nitrostat Sl) 0.3 mg Q5M PRN SL 08/25/16 17:45 (Glucagon Inj) 1 mg UNSCH PRN OTHER 08/25/16 17:45 (Tylenol) 650 mg Q4H PRN PO 08/25/16 18:15 (Tums Chew) 1,000 mg TID PRN CHEW 08/25/16 18:15 (Restoril) 15 mg HS PRN PO 08/25/16 18:15 (Lipitor) 40 mg HS PO 08/25/16 21:00 08/28/16 22:07 (Imdur) 30 mg BID PO 08/25/16 21:00 08/28/16 22:07 (Lopressor) 12.5 mg Q12HR PO 08/26/16 21:00 08/28/16 22:07 Miscellaneous 1 ea 1 ea UNSCH PRN OTHER 08/26/16 12:30 (Heparin-D5W Inj) 250 ml @ 0 mls/hr TITRATE IV 08/26/16 17:00 08/28/16 22:05 Tamsulosin HCl 0.4 mg 0.4 mg HS PO 08/28/16 21:00 08/28/16 22:12 Lactated Ringer's 1,000 ml @ 30 mls/hr Q24H IV 08/28/16 23:15 (NS 500 ml Inj) 500 ml @ 30 mls/hr [id number] IV 08/28/16 23:15 08/29/16 23:14 (NS Flush) 2 ml BID IV FLUSH 08/29/16 21:00 IV Flush 2 ml 2 ml UNSCH PRN IV FLUSH 08/29/16 11:15 Dexmedetomidine HCl 50 ml @ 0 mls/hr TITRATE IV 08/29/16 11:15 Nitroglycerin/ Dextrose 250 ml @ 0 mls/hr TITRATE IV 08/29/16 11:15 Dobutamine HCl/ Dextrose 250 ml @ 14.745 mls/ hr [id number] IV 08/29/16 11:14 Dopamine HCl/ Dextrose 500 ml @ 0 mls/hr TITRATE IV 08/29/16 11:15 Epinephrine HCl 4 mg/Dextrose 250 ml @ 0 mls/hr TITRATE IV 08/29/16 11:15 Phenylephrine HCl 40 mg/Dextrose 500 ml @ 0 mls/hr TITRATE IV 08/29/16 11:15 (Cleviprex Inj) 50 ml @ 0 mls/hr TITRATE IV 08/29/16 11:15 Albumin Human 12.5 gm 12.5 gm UNSCH PRN IV 08/29/16 11:15 (Lr 1000 ml Inj) 500 ml @ 500 mls/hr Q1H PRN IV 08/29/16 11:14 (Aspirin Chew) 81 mg DAILY PO 08/30/16 09:00 (Plavix) 75 mg DAILY PO 08/30/16 09:00 (Protonix) 40 mg DAILY@06 PO 08/30/16 06:00 (Cordarone) 200 mg Q12HR PO 08/29/16 21:00 (Tylenol) 650 mg Q4H PRN PO 08/29/16 11:15 (Tylenol Supp) 650 mg Q4H PRN RECTAL 08/29/16 11:15 (Ofirmev Inj) 1,000 mg Q6H IV 08/29/16 12:00 08/30/16 06:01 08/29/16 13:30 (Morphine Inj) 1 mg Q10M PRN IV 08/29/16 11:15 (Demerol Inj) 12.5 mg Q4H PRN IV 08/29/16 11:15 (Percocet 5-325 Mg) 1 tab Q3H PRN PO 08/29/16 11:15 (Percocet 5-325 Mg) 2 tab Q3H PRN PO 08/29/16 11:15 (Toradol Inj) 15 mg Q6H PRN IV PUSH 08/29/16 11:15 08/31/16 11:14 (fentaNYL INJ) 25 mcg Q1H PRN IV 08/29/16 11:15 08/29/16 13:32 (Zofran Inj) 4 mg Q6H PRN IV PUSH 08/29/16 11:15 (Apresoline Inj) 10 mg Q4H PRN IV 08/29/16 11:15 Metoprolol Tartrate 2.5 mg 2.5 mg Q1H PRN IV PUSH 08/29/16 11:15 Potassium Chloride 100 ml @ 50 mls/hr UNSCH PRN IV 08/29/16 11:15 Potassium Chloride 100 ml @ 50 mls/hr UNSCH PRN IV 08/29/16 11:15 08/29/16 13:29 Potassium Chloride 100 ml @ 50 mls/hr UNSCH PRN IV 08/29/16 11:15 Magnesium Sulfate 2 gm/Sodium Chloride 104 ml @ 100 mls/hr UNSCH PRN IV 08/29/16 11:15 Magnesium Sulfate 2 gm/Sodium Chloride 104 ml @ 50 mls/hr UNSCH PRN IV 08/29/16 11:15 (Calcium Chloride Inj/NS Inj) 110 ml @ 100 mls/hr UNSCH PRN IV 08/29/16 11:15 Calcium Chloride 0.5 gm 0.5 gm UNSCH PRN IV 08/29/16 11:15 (NovoLIN R (IV INFUSION)/NS Inj) 100 ml @ 0 mls/hr TITRATE IV 08/29/16 11:15 Dextrose 25 ml 25 ml UNSCH PRN IV PUSH 08/29/16 11:15 (Ancef 2 Gm Premix) 50 ml @ 100 mls/hr Q8H IV 08/29/16 15:00 08/30/16 23:29 08/29/16 13:38 Vital Signs / I&O Vital Signs Date Time Temp Pulse Resp B/P Pulse Ox O2 Delivery O2 Flow Rate FiO2 08/29/16 16:26 98.6 08/29/16 16:00 61 08/29/16 15:00 98.6 62 20 128/58 97 08/29/16 14:32 18 08/29/16 14:00 98.4 60 20 110/64 97 08/29/16 13:17 97 Nasal Cannula 4 08/29/16 12:25 95 Mechanical Ventilator 50 08/29/16 12:04 65 08/29/16 12:04 97.4 08/29/16 11:47 97 50 08/29/16 04:00 97.0 62 18 131/76 97 08/29/16 04:00 62 1/23/17 00:00 98.8 59 18 121/70 97 08/29/16 00:00 59 08/28/16 20:00 69 08/28/16 20:00 98.5 69 18 130/72 97 08/28/16 20:00 97 Room Air 08/28/16 18:00 64 I/O 08/28/16 08/28/16 08/28/16 08/29/16 08/29/16 08/29/16 07:00 15:00 23:00 07:00 15:00 23:00 Intake Total 792 ml 674 ml 417 ml Output Total 1000 ml 300 ml 2950 ml Balance -208 ml 374 ml -2533 ml Intake Oral 340 ml 450 ml 240 ml IV Total 452 ml 224 ml 177 ml Output Urine Total 1000 ml 300 ml 2950 ml # Bowel Movements 0 0 Physical Exam GENERAL: NAD, AAOx3 SKIN: Warm and dry. HEAD: Atraumatic. Normocephalic. EYES: Pupils equal and round. No scleral icterus. No injection or drainage. ENT: No nasal bleeding or discharge. Mucous membranes pink and moist. NECK: Trachea midline. No JVD. CARDIOVASCULAR: Regular rate and rhythm. Sternotomy clean and dry RESPIRATORY: No accessory muscle use. Clear to auscultation. Breath sounds equal bilaterally. GASTROINTESTINAL: Abdomen soft, non-tender, nondistended. Hepatic and splenic margins not palpable. MUSCULOSKELETAL: Extremities without clubbing, cyanosis, or edema. No obvious deformities. Right radial no hematoma NEUROLOGICAL: Awake and alert. No obvious cranial nerve deficits. Motor grossly within normal limits. Five out of 5 muscle strength in the arms and legs. Normal speech. PSYCHIATRIC: Appropriate mood and affect; insight and judgment normal. Laboratory Laboratory Tests Test 08/28/16 08/29/16 19:20 03:43 Activated Partial 43.4 SEC 47.6 SEC Thromboplast Time Assessment and Plan Problem List: (1) Unstable angina (2) Multi-vessel coronary artery stenosis (3) HLD (hyperlipidemia) (4) HTN (hypertension) (5) DM type 2 (diabetes mellitus, type 2) Assessment and Plan 1) s/p CABG SVG to Diag, SVG to OM1, SVG to distal RCA POD#0 2) EF 55-60% 3) Con't ASA/Plavix/BB/Statin 4) IS/Ambulate when ready Problem Qualifiers (1) DM type 2 (diabetes mellitus, type 2): Jean-Claude Leyva DO Aug 29, 2016 17:11
--- NOTE | 2016-08-29 17:22 | HHI.PR ---
Subjective Remarks Follow-up unstable angina/multivessel coronary artery disease 08/26/16-patient seen and examined early this morning, still free of chest pain and denies any shortness of breath. Currently nothing by mouth and plan for left heart catheterization 08/27/16-patient seen and examined, he is status post left heart catheterization with finding of multivessel coronary artery disease. CTS has been consulted. Currently denies any chest pain or shortness of breath. Family by the bedside. Case discussed with Dr. Leyva, cardiology 08/28/16-patient seen and examined, complains of one episode of chest pain around 3 AM however now resolved. No other issues overnight 08/29/16-Late entry. patient seen and examined; heading to OR for CABG Objective Vitals Vital Signs Date Time Temp Pulse Resp B/P Pulse Ox O2 Delivery O2 Flow Rate FiO2 08/29/16 16:26 98.6 08/29/16 16:00 61 08/29/16 15:00 98.6 62 20 128/58 97 08/29/16 14:32 18 08/29/16 14:00 98.4 60 20 110/64 97 08/29/16 13:17 97 Nasal Cannula 4 08/29/16 12:25 95 Mechanical Ventilator 50 08/29/16 12:04 65 08/29/16 12:04 97.4 08/29/16 11:47 97 50 08/29/16 04:00 97.0 62 18 131/76 97 08/29/16 04:00 62 08/29/16 00:00 98.8 59 18 121/70 97 08/29/16 00:00 59 08/28/16 20:00 69 08/28/16 20:00 98.5 69 18 130/72 97 08/28/16 20:00 97 Room Air 08/28/16 18:00 64 I/O 08/28/16 08/28/16 08/28/16 08/29/16 08/29/16 08/29/16 07:00 15:00 23:00 07:00 15:00 23:00 Intake Total 792 ml 674 ml 417 ml 3550 ml Output Total 1000 ml 300 ml 2950 ml 440 ml Balance -208 ml 374 ml -2533 ml 3110 ml Intake Oral 340 ml 450 ml 240 ml 350 ml IV Total 452 ml 224 ml 177 ml 3200 ml Output Urine Total 1000 ml 300 ml 2950 ml 300 ml Drainage Total 140 ml # Bowel Movements 0 0 0 Result Diagram: 08/28/16 0435 08/27/16 0334 Objective Remarks GENERAL: NAD SKIN: Warm and dry. HEAD: Normocephalic. EYES: No scleral icterus. No injection or drainage. NECK: Supple, trachea midline. No JVD or lymphadenopathy. CARDIOVASCULAR: Regular rate and rhythm without murmurs, gallops, or rubs. RESPIRATORY: Breath sounds equal bilaterally. No accessory muscle use. GASTROINTESTINAL: Abdomen soft, non-tender, nondistended. MUSCULOSKELETAL: No cyanosis, or edema. BACK: Nontender without obvious deformity. No CVA tenderness. A/P Problem List: (1) Unstable angina ICD Code: I20.0 Status: Acute (2) BPH (benign prostatic hyperplasia) ICD Code: N40.0 Status: Chronic (3) HLD (hyperlipidemia) ICD Code: E78.5 Status: Chronic (4) DM type 2 (diabetes mellitus, type 2) ICD Code: E11.9 Status: Chronic (5) HTN (hypertension) ICD Code: I10 Status: Chronic Assessment and Plan 56-year-old male with Multivessel coronary artery disease: Status post left heart catheterization ; cardiothoracic surgery has been consulted and plan for CABG today . Lower extremity Doppler negative. Carotid ultrasound bilateral unremarkable. Currently on heparin drip/Imdur, beta urvashi, statin, nitroglycerin when necessary Chest pain, angina unstable - Status post left heart catheterization 08/26/16 with finding of multivessel coronary disease. Management as above Hyperlipidemia: On statin HTN - on lisinopril 20mg, ASA 81 mg, hydrochlorothiazide 12.5 mg DM 2 - continue to hold off on metformin . - Monitor Accu-Cheks, started on insulin sliding scale BPH - restart home medication Flomax DVT prop SCDs Problem Qualifiers (1) DM type 2 (diabetes mellitus, type 2): Johnny De Oliveira MD Aug 29, 2016 17:22
[2016-08-29] MEDS: oxyCODONE/ACETAMINOPHEN 5 MG/325 MG TAB PO PRN ×3 (19:03→21:27)
[2016-08-29] MEDS: SODIUM CHLORIDE 0.9% FLUSH 5 ML FLUSH IV FLUSH SCH (21:00)
[2016-08-29] MEDS: ATORVASTATIN 40 MG TAB PO SCH (21:26)
[2016-08-29] MEDS: TAMSULOSIN HCL 0.4 MG CAP PO SCH (21:26)
[2016-08-29] MEDS: AMIODARONE 200 MG TAB PO SCH (21:26)
[2016-08-29] MEDS: KETOROLAC TROMETHAMINE 30 MG/ML (IVP) VIAL IV PUSH PRN (21:49)
[2016-08-29] MEDS: LACTATED RINGER'S 1000 ML IV SCH (23:15)
[2016-08-30] VITALS (22 sets, daily range): BP systolic 119–157; BP diastolic 59–79; PULSE 59–86; RESP 16–20; TEMP 98.4–98.9; O2SAT 95–99
[2016-08-30] MEDS: ACETAMINOPHEN 1000 MG/100 ML VIAL IV SCH ×2 (00:23→06:45)
[2016-08-30] MEDS: KETOROLAC TROMETHAMINE 30 MG/ML (IVP) VIAL IV PUSH PRN ×2 (03:26→17:46)
[2016-08-30] MEDS: RESP: ALBUTEROL 2.5 MG/IPRATROPIUM 0.5 MG NEB (SCH) NEB ×4 (03:39→22:01)
[2016-08-30] MEDS: DOBUTamine PREMIX DRIP 250 ML IV SCH (04:12)
[2016-08-30 05:36] LABS: HEMATOCRIT 33.5 % (39.0-51.0); MEAN CELL VOLUME 85.8 FL (80.0-100.0); MEAN CORPUSCULAR HGB CONC 33.8 % (32.0-36.0); PLATELET COUNT 197 TH/MM3 (150-450); RED CELL DISTRIBUTION WIDTH 13.9 % (11.6-17.2); REVIEW FLAG FINAL; WHITE BLOOD COUNT 10.3 TH/MM3 (4.0-11.0)
[2016-08-30 06:15] LABS: BICARBONATE 22.2 MEQ/L (21.0-32.0)
[2016-08-30] MEDS: PANTOPRAZOLE SOD 40 MG DELAYED RELEASE TAB PO SCH (06:45)
[2016-08-30] MEDS: ceFAZolin 2 GM PREMIX 50 ML IV SCH ×3 (06:46→22:54)
[2016-08-30] MEDS: INSULIN ASPART SUPPLEMENTAL SCALE SQ SCH ×5 (07:00→22:54)
--- NOTE | 2016-08-30 07:01 | RADRPT ---
EXAM DATE/TIME: 08/30/2016 06:16 [place] COMPARISON: CHEST SINGLE AP, August 29, 2016, 12:38. INDICATIONS : Post CABG. MEDICAL HISTORY : Diabetes mellitus type II. SURGICAL HISTORY : CABG. ENCOUNTER: Subsequent ACUITY: 2 days PAIN SCORE: Non-responsive. LOCATION: Bilateral chest FINDINGS: A single view of the chest demonstrates the lungs to be symmetrically aerated without evidence of mas s, infiltrate or effusion. The cardiomediastinal contours are unremarkable. There is evidence of pre vious cardiothoracic surgery. Osseous structures are intact. CONCLUSION: No focal or acute pulmonary infiltrates. Jerrod Baptiste MD on August 30, 2016 at 6:59 Board Certified Radiologist. This report was verified electronically.
[2016-08-30] MEDS: oxyCODONE/ACETAMINOPHEN 5 MG/325 MG TAB PO PRN ×2 (07:52→10:52)
[2016-08-30] MEDS ORDERED: GLUCAGON 1 MG/ML VIAL OTHER PRN (08:30)
[2016-08-30] MEDS ORDERED: BISACODYL 10 MG SUPP RECTAL PRN (08:30)
[2016-08-30] MEDS ORDERED: DEXTROSE 50% IN WATER 50 ML VIAL(D50) IV PRN (08:30)
[2016-08-30] MEDS ORDERED: SOD PHOSPHATE/SOD BIPHOSPHATE (ADULT) ENEMA 133ML RECTAL PRN (08:30)
--- NOTE | 2016-08-30 08:43 | PD.CAR.PN ---
CVT Progress Note CVT: POD #: 1 Subjective/Hospital Course: 56/ male HX CAD / stent to RCA/ unstable angina / underwent Heart Cath 08/[address] Leyva multi vessel disease EF 55-60% PMH: DM , HLP, HTN, CAD, BPH surgery: 08/30 Urgent Off-pump Coronary Artery Bypass Grafting x 3 with reverse saphenous vein graft to Diagonal 1, reverse saphenous vein graft to the OM1, reverse saphenous vein graft to the distal RCA, Right Leg Endoscopic Vein [place] Crystalloid 4000cc/ urine: 350cc/ cell saver 400cc 08/30 extubated after surgery ,up in chair pain controlled start BB, may need kyra resumed , gentle diuresis aggressive pulm toileting , wean off insulin gtt resume home meds in am Objective: GENERAL: SKIN: Warm and dry./ prevena to chest, kyra wrap to right leg HEAD: Normocephalic. EYES: No scleral icterus. No injection or drainage. NECK: Supple, trachea midline. No JVD or lymphadenopathy. CARDIOVASCULAR: Regular rate and rhythm without murmurs, gallops, or rubs. RESPIRATORY: Breath sounds equal bilaterally. No accessory muscle use. chest tube to wall suction , no air leak, drained 70cc/ 12 hrs GASTROINTESTINAL: Abdomen soft, non-tender, nondistended. MUSCULOSKELETAL: No cyanosis, or edema. BACK: Nontender without obvious deformity. No CVA tenderness. Vital Signs Date Time Temp Pulse Resp B/P Pulse Ox O2 Delivery O2 Flow Rate FiO2 08/30/16 07:17 98 Nasal Cannula 2.00 08/30/16 04:30 20 08/30/16 04:00 70 08/30/16 03:00 98.6 59 18 125/60 99 08/30/16 03:00 99 Nasal Cannula 3.00 08/30/16 01:00 74 08/30/16 01:00 18 08/30/16 00:00 69 08/29/16 23:00 98.1 69 18 146/80 99 08/29/16 23:00 99 Nasal Cannula 3.00 08/29/16 20:18 99 Nasal Cannula 3.00 08/29/16 20:00 98.0 68 18 127/67 99 08/29/16 20:00 99 Nasal Cannula 3.00 08/29/16 20:00 68 08/29/16 16:26 98.6 08/29/16 16:00 61 08/29/16 15:00 98.6 62 20 128/58 97 08/29/16 14:32 18 08/29/16 14:00 98.4 60 20 110/64 97 08/29/16 13:17 97 Nasal Cannula 4 08/29/16 12:25 95 Mechanical Ventilator 50 08/29/16 12:04 65 08/29/16 12:04 97.4 08/29/16 11:47 97 50 Labs: Laboratory Tests Test 08/30/16 05:15 White Blood Count 10.3 TH/MM3 (4.0-11.0) Red Blood Count 3.90 MIL/MM3 (4.50-5.90) Hemoglobin 11.3 GM/DL (13.0-17.0) Hematocrit 33.5 % (39.0-51.0) Mean Corpuscular Volume 85.8 FL (80.0-100.0) Mean Corpuscular Hemoglobin 29.0 PG (27.0-34.0) Mean Corpuscular Hemoglobin 33.8 % Concent (32.0-36.0) Red Cell Distribution Width 13.9 % (11.6-17.2) Platelet Count 197 TH/MM3 (150-450) Mean Platelet Volume 8.5 FL (7.0-11.0) Sodium Level 140 MEQ/L (136-145) Potassium Level 4.0 MEQ/L (3.5-5.1) Chloride Level 106 MEQ/L (98-107) Carbon Dioxide Level 22.2 MEQ/L (21.0-32.0) Anion Gap 12 MEQ/L (5-15) Blood Urea Nitrogen 15 MG/DL (7-18) Creatinine 0.93 MG/DL (0.60-1.30) Estimat Glomerular Filtration 83 ML/MIN (>89) Rate Random Glucose 124 MG/DL (74-106) Calcium Level 8.1 MG/DL (8.5-10.1) Magnesium Level 2.0 MG/DL (1.5-2.5) Result Diagram: 08/30/1615 08/30/16 0515 Telemetry: NSR (1) Unstable angina (2) Multi-vessel coronary artery stenosis (3) S/P CABG x 3 Plan: ASA, Plavix, statin , BB aggressive pulm toileting OOB / ambulate/ transfer to stepdown unit (4) HLD (hyperlipidemia) Plan: statin/ dietary consult (5) DM type 2 (diabetes mellitus, type 2) Plan: wean off insulin gtt add po meds in am (6) HTN (hypertension) Plan: BB, may need to start kyra Problem Qualifiers (1) DM type 2 (diabetes mellitus, type 2): Shameka Cunningham Aug 30, 2016 08:43
[2016-08-30] MEDS ORDERED: FUROSEMIDE 40 MG/4 ML VIAL IV PUSH ONE (09:30)
[2016-08-30] MEDS ORDERED: POTASSIUM CHLORIDE 20 MEQ CONTROLLED RELEASE TAB PO ONE (09:30)
[2016-08-30] MEDS ORDERED: MAGNESIUM SULFATE 1 GM PREMIX 100 ML IV ONE (09:30)
[2016-08-30] MEDS: SODIUM CHLORIDE 0.9% FLUSH 5 ML FLUSH IV FLUSH SCH ×2 (09:54→20:17)
[2016-08-30] MEDS: ASPIRIN 81 MG CHEW TAB PO SCH (09:55)
[2016-08-30] MEDS: CLOPIDOGREL 75 MG TAB PO SCH (09:55)
[2016-08-30] MEDS: METOPROLOL TARTRATE 25 MG TAB PO SCH ×2 (09:55→20:17)
[2016-08-30] MEDS: AMIODARONE 200 MG TAB PO SCH ×2 (09:55→20:17)
[2016-08-30] MEDS ORDERED: INSULIN DETEMIR 100 UNITS/ML VIAL SQ ONE (10:00)
[2016-08-30] MEDS: MULTIVITAMINS/MINERALS THERAPEUTIC TAB PO SCH (10:49)
--- NOTE | 2016-08-30 11:10 | HHI.PR ---
Subjective Remarks Follow-up unstable angina/multivessel coronary artery disease 08/26/16-patient seen and examined early this morning, still free of chest pain and denies any shortness of breath. Currently nothing by mouth and plan for left heart catheterization 08/27/16-patient seen and examined, he is status post left heart catheterization with finding of multivessel coronary artery disease. CTS has been consulted. Currently denies any chest pain or shortness of breath. Family by the bedside. Case discussed with Dr. Leyva, cardiology 08/28/16-patient seen and examined, complains of one episode of chest pain around 3 AM however now resolved. No other issues overnight 08/29/16-Late entry. patient seen and examined; heading to OR for CABG 08/30/16- patient seen and examined; he had CABG yesterday and was extubated this AM. Some chest pain and shortness of breath Objective Vitals Vital Signs Date Time Temp Pulse Resp B/P Pulse Ox O2 Delivery O2 Flow Rate FiO2 08/30/16 11:04 98 Room Air 08/30/16 11:01 98.6 72 18 148/78 99 08/30/16 08:52 18 08/30/16 08:00 65 08/30/16 07:17 98 Nasal Cannula 2.00 08/30/16 07:00 98 Room Air 08/30/16 07:00 98.6 65 18 157/78 99 08/30/16 04:30 20 08/30/16 04:00 70 08/30/16 03:00 98.6 59 18 125/60 99 08/30/16 03:00 99 Nasal Cannula 3.00 08/30/16 01:00 74 08/30/16 01:00 18 08/30/16 00:00 69 08/29/16 23:00 98.1 69 18 146/80 99 08/29/16 23:00 99 Nasal Cannula 3.00 08/29/16 20:18 99 Nasal Cannula 3.00 08/29/16 20:00 98.0 68 18 127/67 99 08/29/16 20:00 99 Nasal Cannula 3.00 08/29/16 20:00 68 08/29/16 16:26 98.6 08/29/16 16:00 61 08/29/16 15:00 98.6 62 20 128/58 97 08/29/16 14:32 18 08/29/16 14:00 98.4 60 20 110/64 97 08/29/16 13:17 97 Nasal Cannula 4 08/29/16 12:25 95 Mechanical Ventilator 50 08/29/16 12:04 65 08/29/16 12:04 97.4 08/29/16 11:47 97 50 I/O 08/29/16 08/29/16 08/29/16 08/30/16 08/30/16 08/30/16 07:00 15:00 23:00 07:00 15:00 23:00 Intake Total 417 ml 3550 ml 555 ml 453 ml Output Total 2950 ml 440 ml 810 ml 290 ml Balance -2533 ml 3110 ml -255 ml 163 ml Intake Oral 240 ml 350 ml 260 ml 350 ml IV Total 177 ml 3200 ml 295 ml 103 ml Output Urine Total 2950 ml 300 ml 740 ml 250 ml Drainage Total 140 ml 70 ml 40 ml # Bowel Movements 0 0 0 0 Result Diagram: 08/30/16 0515 08/30/16 0515 Imaging Last Impressions Chest X-Ray 08/30/16 0500 Signed Impressions: Service Date/Time: Tuesday, August 30, 2016 06:16 - CONCLUSION: No focal or acute pulmonary infiltrates. Jerrod Baptiste MD Lower Extremity Ultrasound 08/26/16 0000 Signed Impressions: Service Date/Time: Friday, August 26, 2016 14:36 - CONCLUSION: 1. Venous mapping as above Esau Morataya MD Carotid Artery Ultrasound 08/26/16 0000 Signed Impressions: Service Date/Time: Friday, August 26, 2016 14:14 - CONCLUSION: Negative examination for a hemodynamically significant carotid stenosis. Aydin Ken MD Objective Remarks GENERAL: NAD SKIN: Warm and dry. HEAD: Normocephalic. EYES: No scleral icterus. No injection or drainage. NECK: Supple, trachea midline. No JVD or lymphadenopathy. CARDIOVASCULAR: Regular rate and rhythm without murmurs, gallops, or rubs. Prevena to chest RESPIRATORY: Breath sounds equal bilaterally. No accessory muscle use. Chest tube in place GASTROINTESTINAL: Abdomen soft, non-tender, nondistended. MUSCULOSKELETAL: No cyanosis, or edema. marcio wrap to right leg BACK: Nontender without obvious deformity. No CVA tenderness. Procedures 08/29/16 1. Urgent Off-pump Coronary Artery Bypass Grafting x 3 with reverse saphenous vein graft to Diagonal 1, reverse saphenous vein graft to the OM1, reverse saphenous vein graft to the distal RCA 2. Right Leg Endoscopic Vein [place] 3. Intraoperative Vein Mapping. A/P Problem List: (1) Unstable angina ICD Code: I20.0 Status: Acute (2) BPH (benign prostatic hyperplasia) ICD Code: N40.0 Status: Chronic (3) HLD (hyperlipidemia) ICD Code: E78.5 Status: Chronic (4) DM type 2 (diabetes mellitus, type 2) ICD Code: E11.9 Status: Chronic (5) HTN (hypertension) ICD Code: I10 Status: Chronic Assessment and Plan 56-year-old male with Multivessel coronary artery disease: Status post left heart catheterization ; cardiothoracic surgery has been consulted and s/p CABGx3 08/29/16. Extubated 08/30/16 Management per cardiothoracic surgery. On amiodarone 200 mg daily and continue with Imdur, beta urvashi, statin, aspirin, Plavix. Incentive spirometry at bedside. PT consult to treat and eval. Chest tube output monitoring and management per CTS Unstable angina/non-ST elevation MO:Status post left heart catheterization 08/26 with finding of multivessel coronary disease. Appreciate input from cardiology. Continue with Imdur/BB/ASA/Plavix/Statin Hyperlipidemia: On statin HTN - Lopressor 25 mg twice a day, consider to resume MARCIO inhibitor 08/31/16. DM 2 - continue to hold off on metformin . Currently on insulin drip, consider to restart oral hypoglycemic agent 08/31/16 BPH - on Flomax DVT prop SCDs Problem Qualifiers (1) DM type 2 (diabetes mellitus, type 2): Johnny De Oliveira MD Aug 30, 2016 11:10
--- NOTE | 2016-08-30 11:15 | RSPPFT ---
DATE OF PROCEDURE: 08/26/16 COMMENTS: Spirometry shows FVC of 6.3 at 127% of predicted, FEV1 of 5.3 at 133%, FEV1/FVC ratio is normal. Flow is normal at FEF 25-75. IMPRESSION: 1. Normal spirometry. 2. Post-bronchodilator study was not performed.
[2016-08-30] MEDS: LISINOPRIL 10 MG TAB PO SCH (12:13)
--- NOTE | 2016-08-30 12:37 | PD.CARD.PN ---
Subjective Subjective Remarks Doing well, appropriate chest pain, no shortness of breath Objective Medications Current Medications Medications (Trade) Dose Ordered Sig/Sakina Route Start Time Stop Time Status Last Admin (Dulcolax Supp) 10 mg DAILY PRN IA 08/25/16 17:45 (Milk Of Magnesia Liq) 30 ml Q12H PRN PO 08/25/16 17:45 (Narcan Inj) 0.4 mg UNSCH PRN IV 08/25/16 17:45 (Tylenol) 650 mg Q4H PRN PO 08/25/16 18:15 (Tums Chew) 1,000 mg TID PRN CHEW 08/25/16 18:15 (Lipitor) 40 mg HS PO 08/25/16 21:00 08/29/16 21:26 (Pill Splitter) 1 ea UNSCH PRN OTHER 08/26/16 12:30 (Flomax) 0.4 mg HS PO 08/28/16 21:00 08/29/16 21:26 (NS Flush) 2 ml BID IV FLUSH 08/29/16 21:00 08/30/16 09:54 (NS Flush) 2 ml UNSCH PRN IV FLUSH 08/29/16 11:15 (Aspirin Chew) 81 mg DAILY PO 08/30/16 09:00 08/30/16 09:55 (Plavix) 75 mg DAILY PO 08/30/16 09:00 08/30/16 09:55 (Protonix) 40 mg DAILY@06 PO 08/30/16 06:00 08/30/16 06:45 (Cordarone) 200 mg Q12HR PO 08/29/16 21:00 08/30/16 09:55 (Tylenol) 650 mg Q4H PRN PO 08/29/16 11:15 (Percocet 5-325 Mg) 1 tab Q3H PRN PO 08/29/16 11:15 08/30/16 07:52 (Percocet 5-325 Mg) 2 tab Q3H PRN PO 08/29/16 11:15 08/30/16 10:52 (Toradol Inj) 15 mg Q6H PRN IV PUSH 08/29/16 11:15 08/31/16 11:14 08/30/16 03:26 (fentaNYL INJ) 25 mcg Q1H PRN IV 08/29/16 11:15 08/29/16 13:32 (Zofran Inj) 4 mg Q6H PRN IV PUSH 08/29/16 11:15 08/29/16 17:28 Metoprolol Tartrate 2.5 mg 2.5 mg Q1H PRN IV PUSH 08/29/16 11:15 Magnesium Sulfate 2 gm/Sodium Chloride 104 ml @ 100 mls/hr UNSCH PRN IV 08/29/16 11:15 Magnesium Sulfate 2 gm/Sodium Chloride 104 ml @ 50 mls/hr UNSCH PRN IV 08/29/16 11:15 Insulin Human Regular 100 units/ Sodium Chloride 100 ml @ 0 mls/hr TITRATE IV 08/29/16 11:15 08/30/16 13:00 (Ancef 2 Gm Premix) 50 ml @ 100 mls/hr Q8H IV 08/29/16 15:00 08/30/16 23:29 08/30/16 06:46 (Lopressor) 25 mg Q12HR PO 08/30/16 09:00 08/30/16 09:55 (Colace) 100 mg BID PO 08/30/16 21:00 (Theragran M Tab) 1 tab DAILY PO 08/30/16 10:00 08/30/16 10:49 (Miralax) 17 gm DAILY PO 08/31/16 09:00 (Senokot) 8.6 mg HS PO 08/30/16 21:00 (Fleets Enema (Adult)) 133 ml UNSCH PRN RECTAL 08/30/16 08:30 (NovoLOG SUPPLEMENTAL SCALE) 1 02,06,10,14,18,22 SQ 08/30/16 10:00 08/31/16 10:01 08/30/16 10:50 (D50w (Vial) Inj) 25 ml UNSCH PRN IV 08/30/16 08:30 (Glucagon Inj) 1 mg UNSCH PRN OTHER 08/30/16 08:30 (NovoLOG SUPPLEMENTAL SCALE) 1 ACHS SQ 08/31/16 11:00 (Prinivil) 10 mg DAILY PO 08/30/16 11:30 08/30/16 12:13 Vital Signs / I&O Vital Signs Date Time Temp Pulse Resp B/P Pulse Ox O2 Delivery O2 Flow Rate FiO2 08/30/16 12:00 71 08/30/16 11:04 98 Room Air 08/30/16 11:01 98.6 72 18 148/78 99 08/30/16 11:00 78 08/30/16 08:52 18 08/30/16 08:00 65 08/30/16 07:17 98 Nasal Cannula 2.00 08/30/16 07:00 98 Room Air 08/30/16 07:00 98.6 65 18 157/78 99 08/30/16 04:30 20 08/30/16 04:00 70 08/30/16 03:00 98.6 59 18 125/60 99 08/30/16 03:00 99 Nasal Cannula 3.00 08/30/16 01:00 74 08/30/16 01:00 18 08/30/16 00:00 69 08/29/16 23:00 98.1 69 18 146/80 99 08/29/16 23:00 99 Nasal Cannula 3.00 08/29/16 20:18 99 Nasal Cannula 3.00 08/29/16 20:00 98.0 68 18 127/67 99 08/29/16 20:00 99 Nasal Cannula 3.00 08/29/16 20:00 68 08/29/16 16:26 98.6 08/29/16 16:00 61 08/29/16 15:00 98.6 62 20 128/58 97 08/29/16 14:32 18 08/29/16 14:00 98.4 60 20 110/64 97 08/29/16 13:17 97 Nasal Cannula 4 I/O 08/29/16 08/29/16 08/29/16 08/30/16 08/30/16 08/30/16 07:00 15:00 23:00 07:00 15:00 23:00 Intake Total 417 ml 3550 ml 555 ml 453 ml Output Total 2950 ml 440 ml 810 ml 290 ml Balance -2533 ml 3110 ml -255 ml 163 ml Intake Oral 240 ml 350 ml 260 ml 350 ml IV Total 177 ml 3200 ml 295 ml 103 ml Output Urine Total 2950 ml 300 ml 740 ml 250 ml Drainage Total 140 ml 70 ml 40 ml # Bowel Movements 0 0 0 0 Physical Exam GENERAL: NAD, AAOx3 SKIN: Warm and dry. HEAD: Atraumatic. Normocephalic. EYES: Pupils equal and round. No scleral icterus. No injection or drainage. ENT: No nasal bleeding or discharge. Mucous membranes pink and moist. NECK: Trachea midline. No JVD. CARDIOVASCULAR: Regular rate and rhythm. Sternotomy clean and dry RESPIRATORY: No accessory muscle use. Clear to auscultation. Breath sounds equal bilaterally. GASTROINTESTINAL: Abdomen soft, non-tender, nondistended. Hepatic and splenic margins not palpable. MUSCULOSKELETAL: Extremities without clubbing, cyanosis, or edema. No obvious deformities. Right radial no hematoma NEUROLOGICAL: Awake and alert. No obvious cranial nerve deficits. Motor grossly within normal limits. Five out of 5 muscle strength in the arms and legs. Normal speech. PSYCHIATRIC: Appropriate mood and affect; insight and judgment normal. Laboratory Laboratory Tests Test 08/30/16 05:15 White Blood Count 10.3 TH/MM3 Red Blood Count 3.90 MIL/MM3 Hemoglobin 11.3 GM/DL Hematocrit 33.5 % Mean Corpuscular Volume 85.8 FL Mean Corpuscular Hemoglobin 29.0 PG Mean Corpuscular Hemoglobin 33.8 % Concent Red Cell Distribution Width 13.9 % Platelet Count 197 TH/MM3 Mean Platelet Volume 8.5 FL Sodium Level 140 MEQ/L Potassium Level 4.0 MEQ/L Chloride Level 106 MEQ/L Carbon Dioxide Level 22.2 MEQ/L Anion Gap 12 MEQ/L Blood Urea Nitrogen 15 MG/DL Creatinine 0.93 MG/DL Estimat Glomerular Filtration 83 ML/MIN Rate Random Glucose 124 MG/DL Calcium Level 8.1 MG/DL Magnesium Level 2.0 MG/DL Assessment and Plan Problem List: (1) Unstable angina (2) Multi-vessel coronary artery stenosis (3) S/P CABG x 3 (4) HLD (hyperlipidemia) (5) DM type 2 (diabetes mellitus, type 2) (6) HTN (hypertension) Assessment and Plan 1) s/p CABG SVG to Diag, SVG to OM1, SVG to distal RCA POD#1 2) EF 55-60% 3) Con't ASA/Plavix/BB/Statin 4) IS/Ambulate when ready 5) Will see PRN, follow up with Dr. Singh on discharge Problem Qualifiers (1) DM type 2 (diabetes mellitus, type 2): Jean-Claude Leyva DO Aug 30, 2016 12:37
--- NOTE | 2016-08-30 14:18 | HHI.FF ---
Face to Face Verification Diagnosis: (1) S/P CABG x 3 (2) Unstable angina (3) BPH (benign prostatic hyperplasia) (4) HTN (hypertension) (5) DM type 2 (diabetes mellitus, type 2) (6) HLD (hyperlipidemia) Physical Therapy Order: Evaluate and Treat Home Health Nursing Order: Signs/symptoms of disease process Diabetic education Wound care and dressing changes Instructions: Heart and Vascular Surgery patients *Special attention to sternal dressing Mandatory frequency Assess and evaluation, 4 days in a row The next week 3X week 2 times a week for 4 weeks 1 time a week for 5 weeks Schedule Heart and Vascular patients for full 60 day certification period Initial visit Review Open Heart Surgery Discharge Instructions (Sternal precautions, Activity, Elastic hose, Incision care, Driving, Incentive spirometry, Smoking, Paint, Work and other) Need Betadine to paint incision Medication reconciliation Importance of follow up care/ check on appointments Make calendar record temperature daily When to call [facility] nurse, review instructions, phone list Incentive Spirometry, demonstration Visit 1- Begin discharge instruction for patient family and/ or caregiver using teach back method- Signs and symptoms of infection Disease characteristics Medicines and side effects Foods and nutrition/ appetite Infection control/ hand washing/ hygiene Visit 2- Continue teaching Discharge instructions- include additional information on smoking cessation , sternal dressing (sternal vac) Visit 3- Continue teaching- Cough and deep breathing, incision monitoring. Choose my plate Visit 4- Continue teaching- Discuss limitations Discuss how they are feeling Discuss progress toward goals Remaining visits- continue teaching and monitoring For any questions please call : Monday 8am-5pm Heart & Vascular Surgery Office ( Dr. Jon & Dr. Johns), After Hours / Nights (5pm -8am) Weekends and Holidays Please call [facility] Card[facility] Unit ([facility]) Charge Nurse PREVENA Single Use Negative Wound Therapy System Caregiver Instruction Sheet 1. A Prevena dressing system was applied to the chest incision during surgery , to promote wound healing. It works via a suction device (negative pressure wound therapy) to remove low to moderate levels of exudate (drainage) and infectious materials. We recommend that the device stay in place for up to seven days, from day of surgery. 2. Day of Surgery___08/29/16 Day of Removal 1/30/17____ 3. The dressing should only be removed by a health career center director. Please arrange removal of device to coincide with Home Health visit and or with Nursing staff at Rehab 4. If skin reddening or irritation of skin occurs, or excessive drainage, please notify the Cardiovascular Surgeons office at [phone]. 5. Light showering is permissible; however the pump should be disconnected and placed in safe location, where it will not get wet. The dressing should not be exposed to direct spray or submerged in water. No bath tub / shower only. Ensure the end of the tubing attached to the dressing is facing down so that water does not enter the top of the tube. 6. To remove Prevena dressing: press purple button to turn off device / remove the suction. Then disconnect the tubing from the pump. The fixation strips should be stretched away from the skin and the dressing lifted at one corner and peeled back until it has been fully removed. 7. After removal, it is ok to shower daily using liquid dial soap and clean wash cloth, rinse and pat dry, and leave incision open to air dry. For any concerns regarding Prevena dressing, and or wounds, please contact Kim Brambila, patient navigator at [phone] or notify the Cardiovascular Surgeons office at [phone]. I have seen patient Gene Diaz on 08/30/16. My clinical findings support the need for the requested home health care services because: Deconditioned w/ increased weakness I certify that my clinical findings support that this patient is homebound because: Post-op weakness Shameka Cunningham Aug 30, 2016 14:18
[2016-08-30] MEDS: ACETAMINOPHEN/HYDROcodone 325 MG/5 MG TAB PO PRN ×2 (16:32→20:38)
--- NOTE | 2016-08-30 16:53 | EKG ---
Date Performed: 08/30/2016 Time Performed: 05:41:28 PTAGE: 56 years EKG: Sinus rhythm Possible left anterior fascicular block Compared to prior tracing no significant change Borderline E CG PREVIOUS TRACING : 08/25/2016 14.04 DOCTOR: Priti Mahmood Interpretating Date/Time 08/30/2016 16:51:44
[2016-08-30] MEDS: CALCIUM CARBONATE 500 MG CHEWABLE TAB CHEW PRN ×2 (17:46→20:16)
[2016-08-30] MEDS: TAMSULOSIN HCL 0.4 MG CAP PO SCH (20:16)
[2016-08-30] MEDS: DOCUSATE SODIUM 100 MG CAP PO SCH (20:16)
[2016-08-30] MEDS: ATORVASTATIN 40 MG TAB PO SCH (20:17)
[2016-08-30] MEDS: SENNOSIDES 8.6 MG TAB PO SCH (20:18)
[2016-08-31] VITALS (25 sets, daily range): BP systolic 127–156; BP diastolic 59–71; PULSE 51–90; RESP 16–18; TEMP 98–98.7; O2SAT 96–98
[2016-08-31] MEDS: INSULIN ASPART SUPPLEMENTAL SCALE SQ SCH ×5 (02:00→20:18)
[2016-08-31] MEDS: ACETAMINOPHEN/HYDROcodone 325 MG/5 MG TAB PO PRN ×4 (02:35→20:11)
[2016-08-31 02:51] LABS: BASOPHIL # 0.1 TH/MM3 (0-0.2); BASOPHIL % 0.9 % (0.0-2.0); EOSINOPHIL # 0.2 TH/MM3 (0-0.4); EOSINOPHIL % 1.5 % (0.0-4.0); HEMATOCRIT 33.9 % (39.0-51.0); HEMO FLAGS DIFF FINAL; LYMPHOCYTE # 1.7 TH/MM3 (1.0-4.8); MEAN CELL VOLUME 85.2 FL (80.0-100.0); MEAN CORPUSCULAR HEMOGLOBIN 29.2 PG (27.0-34.0); MEAN CORPUSCULAR HGB CONC 34.3 % (32.0-36.0); MONO % 11.6 % (0.0-8.0); PLATELET COUNT 179 TH/MM3 (150-450); RED BLOOD COUNT 3.98 MIL/MM3 (4.50-5.90); RED CELL DISTRIBUTION WIDTH 13.7 % (11.6-17.2); WHITE BLOOD COUNT 10.2 TH/MM3 (4.0-11.0)
[2016-08-31 03:13] LABS: BICARBONATE 30.7 MEQ/L (21.0-32.0); MAGNESIUM 1.9 MG/DL (1.5-2.5); POTASSIUM 4.1 MEQ/L (3.5-5.1)
[2016-08-31] MEDS: PANTOPRAZOLE SOD 40 MG DELAYED RELEASE TAB PO SCH (06:44)
[2016-08-31] MEDS: RESP: ALBUTEROL 2.5 MG/IPRATROPIUM 0.5 MG NEB (SCH) NEB ×3 (07:55→21:19)
[2016-08-31] MEDS: METOPROLOL TARTRATE 25 MG TAB PO SCH (09:00)
[2016-08-31] MEDS ORDERED: METOPROLOL TARTRATE 25 MG TAB PO ONE (10:00)
[2016-08-31] MEDS ORDERED: POTASSIUM CHLORIDE 20 MEQ CONTROLLED RELEASE TAB PO ONE (10:00)
--- NOTE | 2016-08-31 10:10 | RSPPFT ---
DATE OF PROCEDURE: 08/25/16 COMMENTS: VOLUMES DYNAMIC: FVC and FEV1 normal. FLOWS: FEV1% and FEF 25-75 normal. IMPRESSION: Normal spirometry. No significant airways obstruction or restriction.
[2016-08-31] MEDS: ASPIRIN 81 MG CHEW TAB PO SCH (10:29)
[2016-08-31] MEDS: LISINOPRIL 10 MG TAB PO SCH (10:29)
[2016-08-31] MEDS: DOCUSATE SODIUM 100 MG CAP PO SCH ×2 (10:29→20:11)
[2016-08-31] MEDS: MULTIVITAMINS/MINERALS THERAPEUTIC TAB PO SCH (10:30)
[2016-08-31] MEDS: POLYETHYLENE GLYCOL 17 GM PKG PO SCH (10:30)
[2016-08-31] MEDS: CLOPIDOGREL 75 MG TAB PO SCH (10:31)
[2016-08-31] MEDS: AMIODARONE 200 MG TAB PO SCH ×2 (10:31→20:10)
[2016-08-31] MEDS: SODIUM CHLORIDE 0.9% FLUSH 5 ML FLUSH IV FLUSH SCH ×2 (10:32→20:11)
--- NOTE | 2016-08-31 10:32 | PD.CAR.PN ---
CVT Progress Note CVT: POD #: 2 Subjective/Hospital Course: 56/ male HX CAD / stent to RCA/ unstable angina / underwent Heart Cath 08/[address] Leyva multi vessel disease EF 55-60% PMH: DM , HLP, HTN, CAD, BPH surgery: 08/30 Urgent Off-pump Coronary Artery Bypass Grafting x 3 with reverse saphenous vein graft to Diagonal 1, reverse saphenous vein graft to the OM1, reverse saphenous vein graft to the distal RCA, Right Leg Endoscopic Vein [place] Crystalloid 4000cc/ urine: 350cc/ cell saver 400cc 08/30 extubated after surgery ,up in chair pain controlled start BB, may need kyra resumed , gentle diuresis aggressive pulm toileting , wean off insulin gtt resume home meds in am 08/31 pt on room air chest tubes drained 90cc/12 hrs dc without difficulty pain controlled BB increased re-add home diabetic meds Objective: GENERAL: SKIN: Warm and dry./ prevena to chest / kyra wrap to left leg HEAD: Normocephalic. EYES: No scleral icterus. No injection or drainage. NECK: Supple, trachea midline. No JVD or lymphadenopathy. CARDIOVASCULAR: Regular rate and rhythm without murmurs, gallops, or rubs. RESPIRATORY: Breath sounds equal bilaterally. No accessory muscle use. chest tube dc GASTROINTESTINAL: Abdomen soft, non-tender, nondistended. MUSCULOSKELETAL: No cyanosis, or edema. BACK: Nontender without obvious deformity. No CVA tenderness. Vital Signs Date Time Temp Pulse Resp B/P Pulse Ox O2 Delivery O2 Flow Rate FiO2 08/31/16 07:56 98 21 08/31/16 07:00 98.0 80 18 136/62 96 08/31/16 06:00 74 08/31/16 05:00 75 08/31/16 04:00 74 08/31/16 03:00 75 08/31/16 03:00 98 Room Air 08/31/16 03:00 98.6 71 17 135/67 98 08/31/16 02:00 72 08/31/16 01:00 70 08/31/16 00:37 69 08/30/16 23:00 97 Room Air 08/30/16 23:00 98.7 70 16 122/59 97 08/30/16 22:20 21 08/30/16 22:00 70 08/30/16 21:00 71 08/30/16 20:00 72 08/30/16 19:00 75 08/30/16 19:00 97 Room Air 08/30/16 19:00 98.9 72 16 119/61 97 08/30/16 18:00 86 08/30/16 17:00 80 08/30/16 16:00 75 08/30/16 15:00 98.4 78 20 141/79 95 08/30/16 15:00 94 Room Air 08/30/16 15:00 71 08/30/16 14:00 82 08/30/16 13:19 78 08/30/16 12:45 96 21 08/30/16 12:00 71 08/30/16 11:04 98 Room Air 08/30/16 11:01 98.6 72 18 148/78 99 08/30/16 11:00 78 Labs: Laboratory Tests Test 08/31/16 02:33 White Blood Count 10.2 TH/MM3 (4.0-11.0) Red Blood Count 3.98 MIL/MM3 (4.50-5.90) Hemoglobin 11.6 GM/DL (13.0-17.0) Hematocrit 33.9 % (39.0-51.0) Mean Corpuscular Volume 85.2 FL (80.0-100.0) Mean Corpuscular Hemoglobin 29.2 PG (27.0-34.0) Mean Corpuscular Hemoglobin 34.3 % Concent (32.0-36.0) Red Cell Distribution Width 13.7 % (11.6-17.2) Platelet Count 179 TH/MM3 (150-450) Mean Platelet Volume 8.8 FL (7.0-11.0) Neutrophils (%) (Auto) 69.0 % (16.0-70.0) Lymphocytes (%) (Auto) 17.0 % (9.0-44.0) Monocytes (%) (Auto) 11.6 % (0.0-8.0) Eosinophils (%) (Auto) 1.5 % (0.0-4.0) Basophils (%) (Auto) 0.9 % (0.0-2.0) Neutrophils # (Auto) 7.0 TH/MM3 (1.8-7.7) Lymphocytes # (Auto) 1.7 TH/MM3 (1.0-4.8) Monocytes # (Auto) 1.2 TH/MM3 (0-0.9) Eosinophils # (Auto) 0.2 TH/MM3 (0-0.4) Basophils # (Auto) 0.1 TH/MM3 (0-0.2) CBC Comment DIFF FINAL Differential Comment Sodium Level 137 MEQ/L (136-145) Potassium Level 4.1 MEQ/L (3.5-5.1) Chloride Level 100 MEQ/L (98-107) Carbon Dioxide Level 30.7 MEQ/L (21.0-32.0) Anion Gap 6 MEQ/L (5-15) Blood Urea Nitrogen 16 MG/DL (7-18) Creatinine 0.94 MG/DL (0.60-1.30) Estimat Glomerular Filtration 82 ML/MIN (>89) Rate Random Glucose 118 MG/DL (74-106) Calcium Level 9.1 MG/DL (8.5-10.1) Magnesium Level 1.9 MG/DL (1.5-2.5) Result Diagram: 08/31/1623208/31/16232 Telemetry: NSR (1) Unstable angina (2) Multi-vessel coronary artery stenosis (3) S/P CABG x 3 Plan: ASA, Plavix, statin , increase BB aggressive pulm toileting OOB / ambulate/ gentle diuresis (4) HLD (hyperlipidemia) Plan: statin/ dietary consult (5) DM type 2 (diabetes mellitus, type 2) Plan: start po meds (6) HTN (hypertension) Plan: BB, on kyra Problem Qualifiers (1) DM type 2 (diabetes mellitus, type 2): Shameka Cunningham Aug 31, 2016 10:32
[2016-08-31] MEDS ORDERED: INSULIN ASPART SUPPLEMENTAL SCALE SQ SCH (11:00)
[2016-08-31] MEDS ORDERED: FUROSEMIDE 40 MG/4 ML VIAL IV PUSH ONE (11:00)
[2016-08-31] MEDS ORDERED: METOPROLOL TARTRATE 50 MG TAB PO ONE (13:15)
[2016-08-31] MEDS: MAGNESIUM SULFATE 1 GM PREMIX 100 ML IV SCH ×2 (14:01→15:45)
[2016-08-31] MEDS: glyBURIDE 2.5 MG TAB PO SCH ×2 (14:07→20:12)
[2016-08-31] MEDS: metFORMIN HCL 500 MG TAB PO SCH ×2 (14:07→17:54)
--- NOTE | 2016-08-31 14:29 | HHI.PR ---
Subjective Remarks Follow up for unstable angina s/p CABG. Patient is doing well. He complains of discomfort around his sternal area but reports improvement as well. No fever, chills. Objective Vitals Vital Signs Date Time Temp Pulse Resp B/P Pulse Ox O2 Delivery O2 Flow Rate FiO2 08/31/16 10:29 18 08/31/16 07:56 98 21 08/31/16 07:00 98.0 80 18 136/62 96 08/31/16 06:00 74 08/31/16 05:00 75 08/31/16 04:00 74 08/31/16 03:00 75 08/31/16 03:00 98 Room Air 08/31/16 03:00 98.6 71 17 135/67 98 08/31/16 02:00 72 08/31/16 01:00 70 08/31/16 00:37 69 08/30/16 23:00 97 Room Air 08/30/16 23:00 98.7 70 16 122/59 97 08/30/16 22:20 21 08/30/16 22:00 70 08/30/16 21:00 71 08/30/16 20:00 72 08/30/16 19:00 75 08/30/16 19:00 97 Room Air 08/30/16 19:00 98.9 72 16 119/61 97 08/30/16 18:00 86 08/30/16 17:00 80 08/30/16 16:00 75 08/30/16 15:00 98.4 78 20 141/79 95 08/30/16 15:00 94 Room Air 08/30/16 15:00 71 I/O 08/30/16 08/30/16 08/30/16 08/31/16 08/31/16 08/31/16 07:00 15:00 23:00 07:00 15:00 23:00 Intake Total 555 ml 453 ml 820 ml 443 ml Output Total 810 ml 290 ml 1550 ml 1640 ml Balance -255 ml 163 ml -730 ml -1197 ml Intake Oral 260 ml 350 ml 720 ml 340 ml IV Total 295 ml 103 ml 100 ml 103 ml Output Urine Total 740 ml 250 ml 1450 ml 1550 ml Chest Tube Drainage Total 100 ml 90 ml Drainage Total 70 ml 40 ml # Voids 2 # Bowel Movements 0 0 0 Result Diagram: 08/31/16 0233 08/31/16 0233 Imaging Last Impressions Chest X-Ray 08/30/16 0500 Signed Impressions: Service Date/Time: Tuesday, August 30, 2016 06:16 - CONCLUSION: No focal or acute pulmonary infiltrates. Jerrod Baptiste MD Lower Extremity Ultrasound 08/26/16 0000 Signed Impressions: Service Date/Time: Friday, August 26, 2016 14:36 - CONCLUSION: 1. Venous mapping as above Esau Morataya MD Carotid Artery Ultrasound 08/26/16 0000 Signed Impressions: Service Date/Time: Friday, August 26, 2016 14:14 - CONCLUSION: Negative examination for a hemodynamically significant carotid stenosis. Aydin Ken MD Objective Remarks GENERAL: AOX3, NAD. SKIN: Warm and dry. HEAD: Normocephalic. EYES: No scleral icterus. No injection or drainage. NECK: Supple, trachea midline. No JVD or lymphadenopathy. CARDIOVASCULAR: Regular rate and rhythm without murmurs, gallops, or rubs. RESPIRATORY: Breath sounds equal bilaterally. No accessory muscle use. GASTROINTESTINAL: Abdomen soft, non-tender, nondistended. MUSCULOSKELETAL: No cyanosis, or edema. BACK: Nontender without obvious deformity. No CVA tenderness. Procedures 08/29/16 1. Urgent Off-pump Coronary Artery Bypass Grafting x 3 with reverse saphenous vein graft to Diagonal 1, reverse saphenous vein graft to the OM1, reverse saphenous vein graft to the distal RCA 2. Right Leg Endoscopic Vein [place] 3. Intraoperative Vein Mapping. A/P Problem List: (1) Unstable angina ICD Code: I20.0 Status: Acute (2) BPH (benign prostatic hyperplasia) ICD Code: N40.0 Status: Chronic (3) HLD (hyperlipidemia) ICD Code: E78.5 Status: Chronic (4) DM type 2 (diabetes mellitus, type 2) ICD Code: E11.9 Status: Chronic (5) HTN (hypertension) ICD Code: I10 Status: Chronic Assessment and Plan Mr. Diaz is a pleasant 56 year old male with a history of CAD s/p RCA stent who was admitted to the hospital due to unstable angina. Catheterization performed by Dr. Jean-Claude Leyva showed multivessel CAD. Subsequently, CT surgery evaluated patient and patient underwent 3 vessel CABG on 08/29/2016. - Unstable angina. - Multivessel coronary artery disease - Hypertension - Status post left heart catheterization 08/26/16 - s/p CABGx3 08/29/16. Extubated 08/30/16 Management per cardiothoracic surgery. - On amiodarone 200 mg Q12hrs. - Continue with Plavix 75mg, Lisinopril 10mg, Lipitor 40mg, Aspirin 81mg all once a day. - Continue Amiodarone 200mg Q12hrs, metoprolol 50mg Q12hrs. - Diabetes mellitus - Patient takes Glyburide and metformin at home. - Continue Aspart Sliding scale insulin. - Patient may need basal insulin. Will consider low dose Levemir 5 to 10 units QHS. BPH - on Flomax Full code. DVT prop SCDs Problem Qualifiers (1) DM type 2 (diabetes mellitus, type 2): Boogie Ayala DO Aug 31, 2016 14:29
[2016-08-31] MEDS: METOPROLOL TARTRATE 50 MG TAB PO SCH (20:10)
[2016-08-31] MEDS: ATORVASTATIN 40 MG TAB PO SCH (20:11)
[2016-08-31] MEDS: SENNOSIDES 8.6 MG TAB PO SCH (20:18)
[2016-08-31] MEDS: TAMSULOSIN HCL 0.4 MG CAP PO SCH (20:18)
[2016-09-01] VITALS (17 sets, daily range): BP systolic 117–135; BP diastolic 51–63; PULSE 65–81; RESP 16–18; TEMP 97.7–98.4; O2SAT 96–99
--- NOTE | 2016-09-01 05:26 | RADRPT ---
EXAM DATE/TIME: 09/01/2016 04:40 [facility] COMPARISON: CHEST SINGLE AP, August 30, 2016, 6:16. INDICATIONS : Shortness of breath, possible pulmonary disease. MEDICAL HISTORY : Diabetes mellitus type II. SURGICAL HISTORY : CABG. ENCOUNTER: Subsequent ACUITY: 4 - 6 days PAIN SCORE: Non-responsive. LOCATION: Bilateral chest FINDINGS: New mild left lower lung atelectasis. Otherwise, the lungs are clear and well-aerated. The heart size is within normal limits. There are no pleural effusions. The bony structures are stable. CONCLUSION: New Left lower lung atelectasis. Otherwise no significant change Jerrod Baptiste MD on September 01, 2016 at 5:24 Board Certified Radiologist. This report was verified electronically.
[2016-09-01] MEDS: PANTOPRAZOLE SOD 40 MG DELAYED RELEASE TAB PO SCH (06:12)
[2016-09-01] MEDS: ACETAMINOPHEN/HYDROcodone 325 MG/5 MG TAB PO PRN (06:18)
[2016-09-01] MEDS: INSULIN ASPART SUPPLEMENTAL SCALE SQ SCH ×2 (06:19→12:32)
[2016-09-01] MEDS: RESP: ALBUTEROL 2.5 MG/IPRATROPIUM 0.5 MG NEB (SCH) NEB (07:44)
[2016-09-01] MEDS: AMIODARONE 200 MG TAB PO SCH (09:48)
[2016-09-01] MEDS: DOCUSATE SODIUM 100 MG CAP PO SCH (09:48)
[2016-09-01] MEDS: METOPROLOL TARTRATE 50 MG TAB PO SCH (09:48)
[2016-09-01] MEDS: CLOPIDOGREL 75 MG TAB PO SCH (09:48)
[2016-09-01] MEDS: LISINOPRIL 10 MG TAB PO SCH (09:48)
[2016-09-01] MEDS: ASPIRIN 81 MG CHEW TAB PO SCH (09:48)
[2016-09-01] MEDS: POLYETHYLENE GLYCOL 17 GM PKG PO SCH (09:48)
[2016-09-01] MEDS: SODIUM CHLORIDE 0.9% FLUSH 5 ML FLUSH IV FLUSH SCH (09:49)
[2016-09-01] MEDS: MULTIVITAMINS/MINERALS THERAPEUTIC TAB PO SCH (09:49)
[2016-09-01] MEDS ORDERED: metFORMIN HCL 500 MG TAB PO SCH (10:15)
--- NOTE | 2016-09-01 10:17 | PD.CAR.PN ---
CVT Progress Note CVT: POD #: 3 Subjective/Hospital Course: 56/ male HX CAD / stent to RCA/ unstable angina / underwent Heart Cath 08/[address] Leyva multi vessel disease EF 55-60% PMH: DM , HLP, HTN, CAD, BPH surgery: 08/30 Urgent Off-pump Coronary Artery Bypass Grafting x 3 with reverse saphenous vein graft to Diagonal 1, reverse saphenous vein graft to the OM1, reverse saphenous vein graft to the distal RCA, Right Leg Endoscopic Vein [place] Crystalloid 4000cc/ urine: 350cc/ cell saver 400cc 08/30 extubated after surgery ,up in chair pain controlled start BB, may need kyra resumed , gentle diuresis aggressive pulm toileting , wean off insulin gtt resume home meds in am 08/31 pt on room air chest tubes drained 90cc/12 hrs dc without difficulty pain controlled BB increased re-add home diabetic meds 09/01 doing well, on room air possible eval for dc later today, after pt has BM continue ambulation, IS, acapella HR with improved control Objective: GENERAL: SKIN: Warm and dry./ prevena to chest , incision intact to right lower leg HEAD: Normocephalic. EYES: No scleral icterus. No injection or drainage. NECK: Supple, trachea midline. No JVD or lymphadenopathy. CARDIOVASCULAR: Regular rate and rhythm without murmurs, gallops, or rubs. RESPIRATORY: Breath sounds equal bilaterally. No accessory muscle use. GASTROINTESTINAL: Abdomen soft, non-tender, nondistended. MUSCULOSKELETAL: No cyanosis, or edema. BACK: Nontender without obvious deformity. No CVA tenderness. Vital Signs Date Time Temp Pulse Resp B/P Pulse Ox O2 Delivery O2 Flow Rate FiO2 09/01/16 07:45 96 21 09/01/16 06:00 79 09/01/16 05:00 73 09/01/16 04:00 72 09/01/16 03:00 98.4 75 16 125/51 97 09/01/16 03:00 72 09/01/16 03:00 96 Room Air 09/01/16 02:00 72 09/01/16 01:00 72 09/01/16 00:00 72 08/31/16 23:00 98.3 72 16 127/59 97 08/31/16 23:00 96 Room Air 08/31/16 23:00 76 08/31/16 22:00 75 08/31/16 21:22 21 08/31/16 21:00 75 08/31/16 20:00 78 08/31/16 19:00 80 08/31/16 19:00 98.2 79 18 131/67 96 08/31/16 19:00 96 Room Air 08/31/16 18:00 80 08/31/16 17:00 77 08/31/16 16:00 79 08/31/16 15:00 98.7 77 18 137/64 96 08/31/16 15:00 90 08/31/16 15:00 96 Room Air 08/31/16 14:00 90 08/31/16 13:00 88 08/31/16 12:00 90 08/31/16 11:00 98.7 87 18 156/71 97 08/31/16 11:00 97 Room Air 08/31/16 11:00 86 08/31/16 10:29 18 Result Diagram: 08/31/1623208/31/16232 Telemetry: NSR (1) Unstable angina (2) Multi-vessel coronary artery stenosis (3) S/P CABG x 3 Plan: ASA, Plavix, statin , BB aggressive pulm toileting OOB / ambulate/ need BM, and cvc line removal eval for possible dc home later today (4) HLD (hyperlipidemia) Plan: statin/ dietary consult (5) DM type 2 (diabetes mellitus, type 2) Plan: start resume po meds (6) HTN (hypertension) Plan: BB, on kyra Problem Qualifiers (1) DM type 2 (diabetes mellitus, type 2): Shameka Cunningham Sep 01, 2016 10:17
[2016-09-01] MEDS ORDERED: AMIO200T PO (10:39)
[2016-09-01] MEDS ORDERED: DOCU1CAP39 PO (10:39)
[2016-09-01] MEDS ORDERED: THERM PO (10:39)
[2016-09-01] MEDS ORDERED: METO-309 PO (10:39)
[2016-09-01] MEDS ORDERED: LISI10TA3 PO (10:39)
[2016-09-01] MEDS ORDERED: PLAV75TA29 PO (10:39)
[2016-09-01] MEDS ORDERED: METF850T PO (10:56)
--- NOTE | 2016-09-01 13:37 | HHI.DS ---
Discharge Summary Admission Date Aug 25, 2016 at 17:08 Discharge Date: Sep 01, 2016 Admitting Diagnosis unstable angina (1) Unstable angina ICD Code: I20.0 (2) BPH (benign prostatic hyperplasia) ICD Code: N40.0 (3) HLD (hyperlipidemia) ICD Code: E78.5 (4) DM type 2 (diabetes mellitus, type 2) ICD Code: E11.9 (5) HTN (hypertension) ICD Code: I10 Procedures 08/29/16 1. Urgent Off-pump Coronary Artery Bypass Grafting x 3 with reverse saphenous vein graft to Diagonal 1, reverse saphenous vein graft to the OM1, reverse saphenous vein graft to the distal RCA 2. Right Leg Endoscopic Vein [place] 3. Intraoperative Vein Mapping. 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 Patient reports that he has been having on and off chest pain started last June. 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 However, he noted that in the past few days the chest pain frequency is more and the pain has increased. He even felt that he has a stabbing knife on his back mid scapular area in between shoulders. He also noted that when he woke up this morning his left jaw was hurting with some numbness. As per patient report also, he took twice the amount of all his medications today, thinking it was Monday, making him take all a.m. meds twice. On exam, patient states that he has no chest pain right now. Denies any other pain and discomfort. Denies SOB/ dyspnea. Denies palpitations, headaches, dizziness. Denies fevers, chills, n/v/d. Denies dysuria, abdominal cramping, abdominal pain, hematuria. CBC/BMP: 08/31/16 0233 08/31/16 0233 Significant Findings Laboratory Tests Test 08/30/16 08/31/16 05:15 02:33 Red Blood Count 3.90 MIL/MM3 3.98 MIL/MM3 (4.50-5.90) (4.50-5.90) Hemoglobin 11.3 GM/DL 11.6 GM/DL (13.0-17.0) (13.0-17.0) Hematocrit 33.5 % 33.9 % (39.0-51.0) (39.0-51.0) Estimat Glomerular Filtration 83 ML/MIN (>89) 82 ML/MIN (>89) Rate Random Glucose 124 MG/DL 118 MG/DL (74-106) (74-106) Calcium Level 8.1 MG/DL (8.5-10.1) Monocytes (%) (Auto) 11.6 % (0.0-8.0) Monocytes # (Auto) 1.2 TH/MM3 (0-0.9) Imaging Last Impressions Chest X-Ray 09/01/16 0600 Signed Impressions: Service Date/Time: August 04:40 - CONCLUSION: New Left lower lung atelectasis. Otherwise no significant change Jerrod Baptiste MD Lower Extremity Ultrasound 08/26/16 0000 Signed Impressions: Service Date/Time: Friday, August 26, 2016 14:36 - CONCLUSION: 1. Venous mapping as above Esau Morataya MD Carotid Artery Ultrasound 08/26/16 0000 Signed Impressions: Service Date/Time: Friday, August 26, 2016 14:14 - CONCLUSION: Negative examination for a hemodynamically significant carotid stenosis. Aydin Ken MD PE at Discharge GENERAL: AOX3, NAD. SKIN: Warm and dry. HEAD: Normocephalic. EYES: No scleral icterus. No injection or drainage. NECK: Supple, trachea midline. No JVD or lymphadenopathy. CARDIOVASCULAR: Regular rate and rhythm without murmurs, gallops, or rubs. RESPIRATORY: Breath sounds equal bilaterally. No accessory muscle use. GASTROINTESTINAL: Abdomen soft, non-tender, nondistended. MUSCULOSKELETAL: No cyanosis, or edema. BACK: Nontender without obvious deformity. No CVA tenderness. Pt update on day of discharge Patient is doing well. No acute concerns. Denies any CP, shortness of breath, fever, chills. Hospital Course Mr. Diaz is a pleasant 56 year old male with a history of CAD s/p RCA stent who was admitted to the hospital due to unstable angina. Catheterization performed by Dr. Jean-Claude Leyva showed multivessel CAD. Subsequently, CT surgery evaluated patient and patient underwent 3 vessel CABG on 08/29/2016. - Unstable angina. - Multivessel coronary artery disease - Hypertension - Status post left heart catheterization 08/26/16 - s/p CABGx3 08/29/16. Extubated 08/30/16 Management per cardiothoracic surgery. - On amiodarone 200 mg Q12hrs. - Continue with Plavix 75mg, Lisinopril 10mg, Lipitor 40mg, Aspirin 81mg all once a day. - Continue Amiodarone 200mg Q12hrs, metoprolol 50mg Q12hrs. - Diabetes mellitus - Patient takes Glyburide and metformin at home. - Patient had an episode of low blood glucose (63). Also he reports loosing a lot of weight recently. - Will recommend patient to stop Glyburide altogether and increase metformin from 500mg BID to 850mg BID. BPH - on Flomax Discharge patient home with home health today. Pt Condition on Discharge: Good Discharge Disposition: Disch w/ Home Health Serv Discharge Time: > 30 minutes Discharge Instructions DIET: Follow Instructions for: Heart Healthy Diet Activities you can perform: Regular-No Restrictions Follow up Referrals: Cardiology PCP Follow-up Surgical - 2 Weeks with Yuliet Jon MD New Medications: Metformin (Metformin) 850 Mg Tab 850 MG PO BIDPC With meals Blood Sugar Management #60 Ref 0 TAB Amiodarone (Amiodarone) 200 Mg Tab 200 MG PO Q12HR heart rhythm #28 Ref 0 TAB Clopidogrel (Plavix) 75 Mg Tab 75 MG PO DAILY Blood Clot Prevention #30 Ref 2 TAB Docusate Sodium (Dok) 100 Mg Cap 100 MG PO BID Constipation #60 Ref 0 CAP Lisinopril (Lisinopril) 10 Mg Tab 10 MG PO DAILY Blood Pressure Management #30 Ref 2 TAB Metoprolol Tartrate (Lopressor) 50 Mg Tab 50 MG PO Q12HR Blood Pressure Management #60 Ref 2 TAB Multiple Vitamins W/ Minerals (Thera M Plus) 1 Tab 1 TAB PO DAILY multi vitamin #30 TAB Continued Medications: Aspirin (Aspirin) 81 Mg Tabdr 81 MG PO DAILY TAB Atorvastatin (Atorvastatin) 40 Mg Tab 40 MG PO HS Cholesterol Management #30 Ref [address] (Nexium) 20 Mg Capdr 20 MG PO DAILY Ref 0 CAP Hydrochlorothiazide (Hydrochlorothiazide) 12.5 Mg Cap 12.5 MG PO DAILY #30 Ref 0 CAP Hydrocodone-Acetaminophen ([place]) 5-325 mg Tab 1 TAB PO Q6H PRN PAIN #40 Ref 0 TAB Tamsulosin (Tamsulosin) 0.4 Mg Cap 0.4 MG PO HS Manage Prostate Problems #30 Ref 0 CAP Discontinued Medications: Glyburide (Glyburide) 2.5 Mg Tab 2.5 MG PO BID Take with meals at the same time each day Blood Sugar Management # 60 Ref 0 TAB Isosorbide Mononitrate ER (Isosorbide Mononitrate ER) 30 Mg [place]is 30 MG PO BID Prevent Chest Pain #30 Ref 0 TAB Lisinopril (Lisinopril) 20 Mg Tab 20 MG PO DAILY #30 Ref 0 TAB Metformin (Metformin) 500 Mg Tab 500 MG PO BIDPC With meals Blood Sugar Management #60 Ref 0 TAB Boogie Ayala DO Sep 01, 2016 13:37
[2016-09-01] MEDS ORDERED: NORC5TAB PO (14:02)
[2016-09-01] MEDS ORDERED: glyBURIDE 2.5 MG TAB PO SCH (17:00)
== END 2016-09-01 16:29 | disposition home health service (06) | DRG 234 ==
LOC: NEPE 14:52 → NEDA 17:08 → NEDH 21:44 → N04A 23:53 → HCIN 08-26 15:53 → HCPC 08-29 08:19 → HCVR 08-29 11:24 → HCPC 08-30 11:26
PROVIDERS: ADMIT Hospitalist; ATTEND Hospitalist
PROC: 4A023N7 Measurement of Cardiac Sampling and Pressure, Left Heart, Percutaneous Approach (ICD-10-PCS; 2016-08-26)
PROC: B2111ZZ Fluoroscopy of Multiple Coronary Arteries using Low Osmolar Contrast (ICD-10-PCS; 2016-08-26)
PROC: 06BP4ZZ Excision of Right Saphenous Vein, Percutaneous Endoscopic Approach (ICD-10-PCS; 2016-08-29)
PROC: 021209W Bypass Coronary Artery, Three Arteries from Aorta with Autologous Venous Tissue, Open Approach (ICD-10-PCS; principal; 2016-08-29 06:56)
DX: I25.110 Atherosclerotic heart disease of native coronary artery with unstable angina pectoris (principal); I10 Essential (primary) hypertension; E78.00 Pure hypercholesterolemia, unspecified; E11.9 Type 2 diabetes mellitus without complications; N40.0 Benign prostatic hyperplasia without lower urinary tract symptoms; E78.5 Hyperlipidemia, unspecified; Z95.5 Presence of coronary angioplasty implant and graft; Z87.891 Personal history of nicotine dependence; Z82.49 Family history of ischemic heart disease and other diseases of the circulatory system; Z79.84 Long term (current) use of oral hypoglycemic drugs
CPT/HCPCS: 36430; 71010; 76937; 80048; 80053; 80061; 81001; 82550; 82552; 82948; 83036; 83735; 84484; 85014; 85025; 85027; 85610; 85730; 86850; 86900; 86901; 86920; 87641; 93005; 93306; 93454; 93880; 93970; 93998; 94002; 94010; 94150; 94640; 94664; 94667; C1768; C1769; C1893; C9399; J0131; J0690; J1644; J1815; J1885; J1940; J2250; J2370; J2405; J2720; J3010; J3370; J3475; J3480; P9016; Q9967